=== PATIENT | male | born 1960 | race Caucasian/White ===

== ENCOUNTER 2016-12-20 08:44 | Emergency (ER) | payer MEDICAID, OTHER ==
[~2016-12-20] VITALS: Ht 172.7 cm; Wt 57.0 kg
[~2016-12-20 08:44] MED LIST: FINASTERIDE; HYDROCORTISONE CR; PREPARATION H; TAMSULOSIN
[2016-12-20 08:52] VITALS: Ht 172.7 cm; Wt 57.0 kg
[2016-12-20] MEDS ORDERED: morphine 4 MG/ML VIAL IV STA (09:19)
[2016-12-20] MEDS ORDERED: SOD CHLORIDE 0.9% 1,000 ML IV STA (09:19)
[2016-12-20] MEDS ORDERED: ONDANSETRON 4 MG INJ IV STA (09:19)
[2016-12-20 09:50] LABS: BASOPHILS % 0.5 % (0.0-2.0); EOSINOPHILS # 0.1 10^3/ul (0.0-0.5); EOSINOPHILS % 2.1 % (0.0-7.0); HEMATOCRIT 42.6 % (42.0-52.0); HEMOGLOBIN 14.6 g/dl (14.0-18.0); LYMPHOCYTES # 2.1 10^3/ul (0.8-2.9); MEAN CORPUSCULAR HEMOGLOBIN 29.4 pg (29.0-33.0); MEAN CORPUSCULAR HGB CONC 34.3 g/dl (32.0-37.0); MEAN CORPUSCULAR VOLUME 85.8 fl (82.0-101.0); MEAN PLATELET VOLUME 8.9 fl (7.4-10.4); MONOCYTE # 0.4 10^3/ul (0.3-0.9); MONOCYTES % 9.9 % (0.0-11.0); NEUTROPHIL # 1.8 10^3/ul (1.6-7.5); NEUTROPHILS % 40.5 % (39.0-77.0); PLATELET COUNT 173 10^3/UL (140-440); RED BLOOD COUNT 4.97 10^6/ul (4.70-6.10); UNCORRECTED WBC 4.5 10^3/ul (4.8-10.8); WHITE BLOOD COUNT 4.5 10^3/ul (4.8-10.8)
[2016-12-20 09:59] LABS: CONDITION 1
[2016-12-20 10:00] LABS: INR 1.14; PROTIME 14.6 Sec (12.2-14.2); PT RATIO 1.1
[2016-12-20 10:01] LABS: ALBUMIN 3.9 g/dl (3.3-4.9); CHLORIDE 101 mmol/L (97-110); POTASSIUM 4.5 mmol/L (3.5-5.1); SODIUM 140 mmol/L (135-144)
[2016-12-20 10:02] LABS: PARTIAL THROMBOPLASTIN TIME 25.6 Sec (25.0-35.0)
[2016-12-20 10:03] LABS: CREATININE 0.68 mg/dl (0.61-1.24)
[2016-12-20 10:04] LABS: ALANINE AMINOTRANSFERASE 52 IU/L (13-69); ALKALINE PHOSPHATASE 88 IU/L (42-121); ANION GAP 18 (8-16); ASPARTATE AMINO TRANSFERASE 35 IU/L (15-46); BILIRUBIN,INDIRECT 0.4 mg/dl (0-1.1); BILIRUBIN,TOTAL 0.4 mg/dl (0.2-1.3); BLOOD UREA NITROGEN 11 mg/dl (7-20); CALCIUM 9.4 mg/dl (8.4-10.2); CARBON DIOXIDE 26 mmol/L (21-31); GLUCOSE 95 mg/dl (70-220); TOTAL PROTEIN 6.5 g/dl (6.1-8.1)
[2016-12-20 10:11] LABS: AMYLASE 100 U/L (11-123)
[2016-12-20 10:17] LABS: TROPONIN-I < 0.012 ng/ml (0.00-0.12)
[2016-12-20] MEDS ORDERED: SOD CHLORIDE 0.9% 100 ML ONE (10:46)
[2016-12-20] MEDS ORDERED: IOHEXOL 300MG/ML 150 ML BTL ONE (10:46)
--- NOTE | 2016-12-20 11:10 | ERD ---
ER Documentation Chief Complaint Date/Time DATE: 12/20/16 TIME: 11:02 Chief Complaint left lower quadrant pain,hx of divertiulitis HPI This is a 56-year-old Hungarian-speaking male with a known history of diverticulitis. The patient had been seen and evaluated at [facility] December 01, 2016 and placed on ciprofloxacin and Flagyl for diverticulitis. He indicates that he has completed all the antibiotics but continues to have severe pain in the left lower quadrant. He states the pain is intermittent, localized to the left lower quadrant, with no alleviating or exacerbating factors. He also indicates he has had a nonproductive cough but denies any shortness of breath at rest or exertion. He has had no fevers no shaking or chills. He denies any hemoptysis hematemesis or melanotic stools. He denies any swelling of his lower extremities. He denies any recent remote blunt or penetrating abdominal wall trauma. ROS All systems reviewed and are negative except as per history of present illness. Medications Home Meds Discontinued Reported Medications [Hydrocortisone Cr] No Conflict Check 09/10/15 [Preparation H Cream] No Conflict Check 09/10/15 [Tamsulisin] No Conflict Check 09/10/15 [Finasteride] No Conflict Check 09/10/15 Allergies Allergies: Coded Allergies: No Known Allergy (Unverified , 12/20/16) PMhx/Soc History of Surgery: Yes (HAND SX) Anesthesia Reaction: No Hx Neurological Disorder: No Hx Respiratory Disorders: No Hx Cardiac Disorders: No Hx Psychiatric Problems: No Hx Miscellaneous Medical Probl: No (HEMRRHOIDS, DIVERTICULITIS) Hx Alcohol Use: No Hx Substance Use: No Hx Tobacco Use: No Smoking Status: Former smoker Physical Exam Vitals Vital Signs Date Time Temp Pulse Resp B/P Pulse Ox O2 Delivery O2 Flow Rate FiO2 12/20/16 08:52 98.6 88 18 142/76 98 Physical Exam Constitutional:Well-developed. Well-nourished. HEENT:Normocephalic. Atraumatic.Pupils were equal round reactive to light. Moist mucous membranes.No tonsillar exudates. Neck: No nuchal rigidity. No lymphadenopathy. No posterior cervical spine tenderness or step-offs. Respiratory: Not using accessory muscles of respiration.Lungs were clear to auscultation bilaterally. No rhonchi. No rales. No wheezing. Cardiovascular: Regular rate regular rhythm.No murmurs. No rubs were appreciated.S1, S2 normal. Distal pulses are palpable 2+ bilaterally. GI: Abdomen was soft. Left lower quadrant tenderness. Non Distended. No pulsatile abdominal masses or bruits. No rebound. No guarding. Bowel sounds were present and normal. Muscle skeletal: Full range of motion of both the upper and lower extremities bilaterally.Normal muscle tone.No assymetrical calf tenderness or swelling. Skin: No petechia, no purpura. No lesions on the palms or the soles of the feet. No maculopapular rash. NEURO: Patient was alert, awake, orientated x3.No facial droop. Gait observed and normal with no ataxia.Speech had regular rate and rhythm. No focal neurological deficits. Result Diagram: 12/20/1635 12/20/1635 Results 24 hrs Laboratory Tests Test 12/20/16 09:35 Activated Partial Thromboplast Time 25.6Sec Alanine Aminotransferase (ALT/SGPT) 52IU/L Albumin 3.9g/dl Albumin/Globulin Ratio 1.50 Alkaline Phosphatase 88IU/L Amylase Level 100U/L Anion Gap 18 Aspartate Amino Transf (AST/SGOT) 35IU/L Basophils # 0.010^3/ul Basophils % 0.5% Blood Urea Nitrogen 11mg/dl Calcium Level 9.4mg/dl Carbon Dioxide Level 26mmol/L Chloride Level 101mmol/L Creatinine 0.68mg/dl Direct Bilirubin 0.00mg/dl Eosinophils # 0.110^3/ul Eosinophils % 2.1% Globulin 2.60g/dl Glucose Level 95mg/dl Hematocrit 42.6% Hemoglobin 14.6g/dl INR International Normalized Ratio 1.14 Indirect Bilirubin 0.4mg/dl Lipase 67U/L Lymphocytes # 2.110^3/ul Lymphocytes % 47.0% Mean Corpuscular Hemoglobin 29.4pg Mean Corpuscular Hemoglobin Concent 34.3g/dl Mean Corpuscular Volume 85.8fl Mean Platelet Volume 8.9fl Monocytes # 0.410^3/ul Monocytes % 9.9% Neutrophils # 1.810^3/ul Neutrophils % 40.5% Nucleated Red Blood Cells # 0.010^3/ul Nucleated Red Blood Cells % 0.0/100WBC Platelet Count 06608^3/UL Potassium Level 4.5mmol/L Prothrombin Time 14.6Sec Prothrombin Time Ratio 1.1 Red Blood Count 4.9710^6/ul Red Cell Distribution Width 14.0% Sodium Level 140mmol/L Total Bilirubin 0.4mg/dl Total Protein 6.5g/dl Troponin I < 0.012ng/ml White Blood Count 4.510^3/ul Current Medications Medications (Trade) Dose Ordered Sig/Guerrero Route PRN Reason Start Time Stop Time Status Last Admin Dose Admin Sodium Chloride (NS) 1,000 ml @ 1,000 mls/hr Q1H STAT IV 12/20/16 09:19 12/20/16 10:18 DC 12/20/16 09:34 Morphine Sulfate (morphine) 4 mg ONCE STAT IV 12/20/16 09:19 12/20/16 09:20 DC 12/20/16 09:34 Ondansetron HCl (Zofran Inj) 4 mg ONCE STAT IV 12/20/16 09:19 12/20/16 09:20 DC 12/20/16 09:34 IV Flush 10 ml 10 ml STK-MED ONCE .ROUTE 12/20/16 10:46 12/20/16 10:47 DC Sodium Chloride (NS) 100 ml @ ud STK-MED ONCE .ROUTE 12/20/16 10:46 12/20/16 10:47 DC Iohexol (Omnipaque 300mg/ ml) 150 ml STK-MED ONCE .ROUTE 12/20/16 10:46 12/20/16 10:47 DC Procedures/MDM This patient presented to the emergency department with abdominal pain and was seen and evaluated by myself. My differential diagnosis included but was not limited to abdominal aortic aneurysm, appendicitis, pancreatitis, perforated peptic ulcer, perforated viscus, Boerhaaves syndrome or visceral pain such as diverticulitis, DKA, esophagitis, hepatitis or bowel obstruction. The patient was placed on a pot sander, continuous pulse oximetry, and IV access was established by nursing staff. The patient was given intravenous morphine and Zofran for analgesic control. 12 Lead EKG tracing ordered and reviewed by myself showed: Sinus bradycardia 58 bpm and no arrhythmia. AR interval normal. QRS duration normal. No ST segment elevation No ST segment depression. No changes consistent with acute ischemia. Given the severity of the patient's symptoms with completion of antibiotics and continued pain with a known history of diverticulitis I did feel is necessary to obtain a CT scan of the abdomen to rule out complication such as perforation. The CT scan was ordered and reviewed by myself and indicated the following: Departure Diagnosis: Primary Impression: Diverticulosis Condition: Fair FREEDOM KING Dec 20, 2016 11:10
--- NOTE | 2016-12-20 11:15 | RADRPT ---
PROCEDURE: XR Chest. CLINICAL INDICATION: Chest pain, cough. TECHNIQUE: Single frontal view of the chest was obtained. COMPARISON: None. FINDINGS: Cardiomediastinal silhouette appears normal Pulmonary vasculature appears normal. Lung terrell appear clear. Costophrenic angles are well defined. The osseous elements appear intact. IMPRESSION: 1. No evidence for active cardiopulmonary disease. RPTAT: AACC Kyle Rowland Physician Date Time Electronically viewed and signed by Kyle Rowland Physician on 12/20/2016 11:15 /
--- NOTE | 2016-12-20 11:17 | RADRPT ---
PROCEDURE: CT Abdomen and Pelvis with contrast. CLINICAL INDICATION: Left lower quadrant pain TECHNIQUE: CT of the abdomen and pelvis was performed on a multi-detector scanner following the un complicated IV administration of 100 cc of Omnipaque 300. Coronal and sagittal images were reformat bertha from the axial data set. One or more of the following dose reduction techniques were used: auto mated exposure control, adjustment of the mA and/or kV according to patient size, use of iterative reconstruction technique. CTDI = 20.75 mGy. DLP = 1266.96 mGy-cm. COMPARISON: None. FINDINGS: CT abdomen: The lung bases are clear. The heart size is normal, without pericardial effusion. Liver, gallbladd er, biliary tree, pancreas, spleen, adrenal glands and kidneys are unremarkable. No urolithiasis or obstructive uropathy is identified. The stomach is grossly unremarkable. There is no abdominal aortic aneurysm or dissection. There is no retroperitoneal lymphadenopathy. The kay hepatis region is clear. CT pelvis: No bowel obstruction, free intraperitoneal air or abscess is identified. Sigmoid diverticulosis is noted, without diverticulitis. The appendix is well visualized and normal. There is no colitis. U rinary bladder is grossly unremarkable. No pelvic mass, free fluid or lymphadenopathy is identified . Small fat-containing left inguinal hernia is noted, without incarceration. The surrounding osseous structures are unremarkable. No osteolytic or osteoblastic lesion is detect ed. IMPRESSION: 1. Colonic diverticulosis is noted, without diverticulitis. 2. Small fat-containing left inguinal hernia is seen, without incarceration. 3. No mass, lymphadenopathy, or focal acute inflammatory process is identified. RPTAT: EE .Marlon Thomas MD, Date Time Electronically viewed and signed by .Marlon Thomas MD, MD on 12/20/2016 11:17 .R/
[2016-12-20] MEDS ORDERED: KETOROLAC 30 MG INJ IV STA (12:40)
[2016-12-20] MEDS ORDERED: ACET1TAB40 PO (12:42)
[2016-12-20 13:19] VITALS: BP 119/68; PULSE 74; RESP 18
== END 2016-12-20 13:19 | disposition home or self-care (01) ==
LOC: E/R 08:44
DX: K57.90 Diverticulosis of intestine, part unspecified, without perforation or abscess without bleeding (principal); R40.2252 Coma scale, best verbal response, oriented, at arrival to emergency department; R40.2362 Coma scale, best motor response, obeys commands, at arrival to emergency department; R40.2142 Coma scale, eyes open, spontaneous, at arrival to emergency department; Z87.891 Personal history of nicotine dependence
CPT/HCPCS: 71010; 74177; 80053; 82150; 83690; 84484; 85025; 85610; 85730; 93005; 96374; 96375; J1885; J2270; J2405; J7030; Q9967; Z7502; Z7610

== ENCOUNTER 2017-02-28 10:25 | Inpatient (IN) | payer OTHER ==
[~2017-02-28] VITALS: Ht 167.6 cm; Wt 85.3 kg
[~2017-02-28 10:25] MED LIST changes: +ACET1TAB40 PO; -FINASTERIDE; -HYDROCORTISONE CR; -PREPARATION H; -TAMSULOSIN
[2017-02-28] MEDS ORDERED: ASPIRIN 325 MG TAB PO STA (10:58)
--- NOTE | 2017-02-28 11:25 | ERA ---
ER Documentation Chief Complaint Date/Time DATE: 02/28/17 TIME: 11:19 Chief Complaint HAS CP SINCE YESTERDAY HPI This is a very pleasant 56-year-old Croatian-speaking male with past medical history of hemorrhoids presents to the emergency department complaining of chest pain that has been intermittent the past 24 hours. The patient states that the pain began as a sharp shooting pain with no alleviating or exacerbating factors. The pain became more persistent roughly 2 hours prior to arrival where he stated it turned into a pressure-like sensation and began to radiate to his left arm neck with no numbness or tingling of his upper or lower extremities. He did not take any analgesic medication prior to arrival. He denied any associated symptoms of nausea vomiting or diaphoresis. He has had no fevers or shaking or chills. He does not smoke tobacco and states he has no family history of coronary artery disease in his first-degree relatives. He denies any hemoptysis hematemesis or melanotic stools. He has no shortness of breath at rest or exertion. He denies any recent travel or prolonged immobilization and no recent sick contacts or hospitalizations ROS All systems reviewed and are negative except as per history of present illness. Medications Home Meds Discontinued Scripts Acetaminophen with Codeine (Acetaminophen-Cod #3 Tablet) 1 Each Tablet, 1 TAB PO Q6H Y for PAIN LEVEL 6-10, #20 TAB Prov:FREEDOM KING 12/20/16 Allergies Allergies: Coded Allergies: No Known Allergy (Unverified , 02/28/17) PMhx/Soc History of Surgery: Yes (HAND SX) Anesthesia Reaction: No Hx Neurological Disorder: No Hx Respiratory Disorders: No Hx Cardiac Disorders: No Hx Psychiatric Problems: No Hx Miscellaneous Medical Probl: No (HEMRRHOIDS, DIVERTICULITIS) Hx Alcohol Use: No Hx Substance Use: No Hx Tobacco Use: No Physical Exam Vitals Vital Signs Date Time Temp Pulse Resp B/P Pulse Ox O2 Delivery O2 Flow Rate FiO2 02/28/17 14:00 39 17 114/80 98 Room Air 02/28/17 12:30 48 16 115/75 98 Room Air 02/28/17 10:37 98.0 63 18 127/70 99 Physical Exam Constitutional:Well-developed. Well-nourished. HEENT:Normocephalic. Atraumatic.Pupils were equal round reactive to light. Moist mucous membranes.No tonsillar exudates. Neck: No nuchal rigidity. No lymphadenopathy. No posterior cervical spine tenderness or step-offs. Respiratory: Not using accessory muscles of respiration.Lungs were clear to auscultation bilaterally. No rhonchi. No rales. No wheezing. Cardiovascular: Regular rate regular rhythm.No murmurs. No rubs were appreciated.S1, S2 normal. Distal pulses are palpable 2+ bilaterally. No reproducible chest wall tenderness crepitus or ecchymosis GI: Abdomen was soft. Nontender. Non Distended. No pulsatile abdominal masses or bruits. No rebound. No guarding. Bowel sounds were present and normal. Muscle skeletal: Full range of motion of both the upper and lower extremities bilaterally.Normal muscle tone.No assymetrical calf tenderness or swelling. Skin: No petechia, no purpura. No lesions on the palms or the soles of the feet. No maculopapular rash. NEURO: Patient was alert, awake, orientated x3.No facial droop. Gait observed and normal with no ataxia.Speech had regular rate and rhythm. No focal neurological deficits. Result Diagram: 02/28/17 1135 02/28/17 1135 Results 24 hrs Laboratory Tests Test 02/28/17 11:35 02/28/17 12:05 White Blood Count 4.510^3/ul Red Blood Count 4.7310^6/ul Hemoglobin 13.9g/dl Hematocrit 41.1% Mean Corpuscular Volume 86.9fl Mean Corpuscular Hemoglobin 29.4pg Mean Corpuscular Hemoglobin Concent 33.8g/dl Red Cell Distribution Width 13.2% Platelet Count 42636^3/UL Mean Platelet Volume 10.4fl Neutrophils % 47.2% Lymphocytes % 37.5% Monocytes % 9.7% Eosinophils % 4.5% Basophils % 0.7% Nucleated Red Blood Cells % 0.0/100WBC Neutrophils # 2.110^3/ul Lymphocytes # 1.710^3/ul Monocytes # 0.410^3/ul Eosinophils # 0.210^3/ul Basophils # 0.010^3/ul Nucleated Red Blood Cells # 0.010^3/ul Prothrombin Time 13.6Sec Prothrombin Time Ratio 1.1 INR International Normalized Ratio 1.04 Activated Partial Thromboplast Time 28.9Sec Sodium Level 135mmol/L Potassium Level 3.8mmol/L Chloride Level 104mmol/L Carbon Dioxide Level 24mmol/L Anion Gap 11 Blood Urea Nitrogen 10mg/dl Creatinine 0.65mg/dl Glucose Level 110mg/dl Hemoglobin A1c 5.6% Calcium Level 8.6mg/dl Total Bilirubin 0.3mg/dl Direct Bilirubin 0.00mg/dl Indirect Bilirubin 0.3mg/dl Aspartate Amino Transf (AST/SGOT) 29IU/L Alanine Aminotransferase (ALT/SGPT) 41IU/L Alkaline Phosphatase 113IU/L Creatine Kinase 140IU/L Creatine Kinase Index 0.6 Creatinine Kinase MB (Mass) 0.90ng/ml Troponin I < 0.012ng/ml B-Type Natriuretic Peptide 37PG/ML Total Protein 6.8g/dl Albumin 3.9g/dl Globulin 2.90g/dl Albumin/Globulin Ratio 1.34 Urine Color LT. YELLOW Urine Clarity CLEAR Urine pH 7.0 Urine Specific [place] <=1.005 Urine Ketones NEGATIVE Urine Nitrite NEGATIVE Urine Bilirubin NEGATIVE Urine Urobilinogen 0.2 E.U./dL Urine Leukocyte Esterase NEGATIVE Urine Hemoglobin NEGATIVE Urine Glucose NEGATIVE% Urine Total Protein NEGATIVE Current Medications Medications (Trade) Dose Ordered Sig/Guerrero Route PRN Reason Start Time Stop Time Status Last Admin Dose Admin Aspirin (Aspirin) 325 mg ONCE STAT PO 02/28/17 10:58 02/28/17 11:00 DC 02/28/17 11:37 Nitroglycerin (Nitroglycerin (Sl Tab) 0.4 Mg) 1 tab Q5M UP TO 3 DOSES PRN SL CHEST PAIN 02/28/17 12:30 Morphine Sulfate (morphine) 2 mg ONCE STAT IV 02/28/17 12:49 02/28/17 12:50 DC 02/28/17 13:45 Ondansetron HCl 4 mg 4 mg ONCE STAT IV 02/28/17 12:49 02/28/17 12:50 DC 02/28/17 13:45 Sodium Chloride (NS) 1,000 ml @ 1,000 mls/hr Q1H STAT IV 02/28/17 13:55 02/28/17 14:54 DC 02/28/17 13:59 Ondansetron HCl (Zofran Inj) 4 mg ER BRIDGE PRN IV NAUSEA AND/OR VOMITING 02/28/17 14:30 03/01/17 14:29 Acetaminophen (Tylenol Tab) 650 mg ER BRIDGE PRN PO MILD PAIN/FEVER 02/28/17 14:30 03/01/17 14:29 IV Flush 10 ml 10 ml STK-MED ONCE .ROUTE 02/28/17 15:39 02/28/17 15:40 DC Sodium Chloride 100 ml @ ud STK-MED ONCE .ROUTE 02/28/17 15:39 02/28/17 15:40 DC Iohexol (Omnipaque) 100 ml @ ud STK-MED ONCE .ROUTE 02/28/17 15:39 02/28/17 15:40 DC Iohexol (Omnipaque 350mg/ ml) 50 ml STK-MED ONCE .ROUTE 02/28/17 15:39 02/28/17 15:40 DC Procedures/MDM The patient presented to the emergency department with chest pain. My clinical evaluation and workup was to distinguish minor causes of chest pain from acute life threatening conditions such as myocardial infarction, pulmonary embolism, aortic dissection, esophageal rupture, cardiac tamponade. The patient was placed on a engineering operations leader and continuous pulse oximetry. IV access established by nursing staff. The patient received 325 mg of aspirin p.o. Sublingual nitroglycerin was also given to the patient. There is no improvement of the patient's chest discomfort which he stated was 6 out of 10 in intensity. Therefore the patient received intravenous morphine and Zofran. 12 Lead EKG tracing ordered and reviewed by myself showed at 10:42am: Normal sinus rhythm of 65 bpm and no arrhythmia. DC interval normal. QRS duration normal. No ST segment elevation No ST segment depression. No changes consistent with acute ischemia. Repeat EKG performed by myself at 11:05 AM. 12 Lead EKG tracing ordered and reviewed by myself showed: Sinus bradycardia 56 bpm and no arrhythmia. DC interval normal. QRS duration normal. No ST segment elevation No ST segment depression. No changes consistent with acute ischemia. The patient was now complaining of chest pain that was radiating to the back and mild neck pain with no meningeal signs. Therefore obtained a CT scan of the patient's neck and chest and there is no evidence of aortic dissection, mass or abscess. The patient had no leukocytosis. The patient will be admitted for serial 12-lead EKG tracings and cardiac set of enzymes under the care of Dr. Ramos. Departure Diagnosis: Primary Impression: Chest pain Qualified Code: R07.9 - Chest pain, unspecified type Condition: Serious FREEDOM KING Feb 28, 2017 11:25
[2017-02-28 11:38] LABS: ADD SCAN DIFF NO
[2017-02-28 11:42] LABS: BASOPHILS % 0.7 % (0.0-2.0); EOSINOPHILS # 0.2 10^3/ul (0.0-0.5); EOSINOPHILS % 4.5 % (0.0-7.0); HEMATOCRIT 41.1 % (42.0-52.0); HEMOGLOBIN 13.9 g/dl (14.0-18.0); LYMPHOCYTES # 1.7 10^3/ul (0.8-2.9); LYMPHOCYTES % 37.5 % (15.0-51.0); MEAN CORPUSCULAR HEMOGLOBIN 29.4 pg (29.0-33.0); MEAN CORPUSCULAR HGB CONC 33.8 g/dl (32.0-37.0); MEAN CORPUSCULAR VOLUME 86.9 fl (82.0-101.0); MEAN PLATELET VOLUME 10.4 fl (7.4-10.4); MONOCYTE # 0.4 10^3/ul (0.3-0.9); MONOCYTES % 9.7 % (0.0-11.0); NEUTROPHIL # 2.1 10^3/ul (1.6-7.5); NEUTROPHILS % 47.2 % (39.0-77.0); PLATELET COUNT 163 10^3/UL (140-415); RED BLOOD COUNT 4.73 10^6/ul (4.70-6.10); RED CELL DISTRIBUTION WIDTH 13.2 % (11.5-14.5); WHITE BLOOD COUNT 4.5 10^3/ul (4.8-10.8)
[2017-02-28 11:51] LABS: INR 1.04; PROTIME 13.6 Sec (12.2-14.2); PT RATIO 1.1
[2017-02-28 11:52] LABS: PARTIAL THROMBOPLASTIN TIME 28.9 Sec (25.0-35.0)
--- NOTE | 2017-02-28 11:53 | RADRPT ---
PROCEDURE: XR Chest 1 View. CLINICAL INDICATION: Chest pain TECHNIQUE: AP view of the chest was obtained. COMPARISON: None. FINDINGS: The cardiomediastinal silhouette is within normal limits. No consolidations are identified. No pne umothorax is seen. Osseous structures are intact. IMPRESSION: No visualized active disease. RPTAT: AA .Bobby Salazar MD, MD Date Time Electronically viewed and signed by .Bobby Salazar MD, on 02/28/2017 11:53 .P/
[2017-02-28 11:56] LABS: ALANINE AMINOTRANSFERASE 41 IU/L (13-69); ALBUMIN 3.9 g/dl (3.3-4.9); ALBUMIN/GLOBULIN RATIO 1.34; ALKALINE PHOSPHATASE 113 IU/L (42-121); ANION GAP 11 (8-16); ASPARTATE AMINO TRANSFERASE 29 IU/L (15-46); BILIRUBIN,INDIRECT 0.3 mg/dl (0-1.1); BILIRUBIN,TOTAL 0.3 mg/dl (0.2-1.3); BLOOD UREA NITROGEN 10 mg/dl (7-20); CALCIUM 8.6 mg/dl (8.4-10.2); CARBON DIOXIDE 24 mmol/L (21-31); CHLORIDE 104 mmol/L (97-110); CREATINE KINASE 140 IU/L (23-200); CREATININE 0.65 mg/dl (0.61-1.24); GLUCOSE 110 mg/dl (70-220); POTASSIUM 3.8 mmol/L (3.5-5.1); SODIUM 135 mmol/L (135-144); TOTAL PROTEIN 6.8 g/dl (6.1-8.1)
[2017-02-28 12:07] LABS: B-TYPE NATRIURETIC PEPTIDE 37 PG/ML (0-125)
[2017-02-28 12:18] LABS: TROPONIN-I < 0.012 ng/ml (0.00-0.12)
[2017-02-28 12:29] LABS: ADD UMIC NO; URINE BILIRUBIN (Dip) NEGATIVE (NEGATIVE); URINE BLOOD (Dip) NEGATIVE (NEGATIVE); URINE COLOR LT. YELLOW (YELLOW); URINE GLUCOSE (Dip) NEGATIVE (NEGATIVE); URINE KETONES (Dip) NEGATIVE (NEGATIVE); URINE LEUKOCYTE ESTERASE (Dip) NEGATIVE (NEGATIVE); URINE NITRITE (Dip) NEGATIVE (NEGATIVE); URINE TOTAL PROTEIN (Dip) NEGATIVE (NEGATIVE); URINE UROBILINOGEN (Dip) 0.2 E.U./dL (0.1-1.0)
[2017-02-28] MEDS ORDERED: NITROGLYCERIN (SL) 0.4 MG TAB SL PRN (12:30)
[2017-02-28] MEDS ORDERED: ONDANSETRON 4 MG INJ IV STA (12:49)
[2017-02-28] MEDS ORDERED: morphine 2 MG INJ IV STA (12:49)
[2017-02-28] MEDS ORDERED: SOD CHLORIDE 0.9% 1,000 ML IV STA (13:55)
[2017-02-28] MEDS ORDERED: ONDANSETRON 4 MG INJ IV PRN (14:30)
[2017-02-28] MEDS ORDERED: ACETAMINOPHEN 325 MG TAB PO PRN (14:30)
[2017-02-28] MEDS ORDERED: SOD CHLORIDE 0.9% 100 ML ONE (15:39)
[2017-02-28] MEDS ORDERED: IOHEXOL 350MG/ML 50 ML BTL ONE (15:39)
[2017-02-28] MEDS ORDERED: IOHEXOL 100 ML ONE (15:39)
--- NOTE | 2017-02-28 16:16 | RADRPT ---
PROCEDURE: CT cervical spine without contrast CLINICAL INDICATION: Trauma. Neck pain. TECHNIQUE: CT scan of the cervical spine was performed [facility] No IV contrast was administered. Coronal and sagittal reformatted images were obtained from th e axial source images. Images were reviewed on a high-resolution PACS workstation. One or more the f ollowing does reduction techniques were utilized: Automated exposure control, adjustment of the mA/ or kV according to patient's size, or use of iterative reconstruction technique. Exam CTDI = 18.85 m Gy and the DLP = 407.54 mGy-cm. COMPARISON: None available. FINDINGS: There is reversal of normal cervical lordosis centered at C3-C4. Alignment remains intact. No acut e fracture or dislocation is seen. The vertebral body heights are preserved. No mass, hematoma, or other soft tissue abnormality is seen. There are multilevel mild degenerative changes of the cervical spine, manifested by osteophytosis an d disc height narrowing, most prominent at C4-C5 and C5-C6. Posterior disk osteophyte complexes cont ribute to mild spinal canal narrowing at C3-C4 through C5-C6. IMPRESSION: 1. Reversal of normal cervical lordosis centered at C3-C4. 2. No acute fracture or traumatic subluxation. 3. Multilevel mild degenerative changes of the cervical spine, most prominent at C4-C5 and C5-C6. 4. Posterior disk osteophyte complexes contribute to mild spinal canal narrowing at C3-C4 through C 5-C6. 5. No significant cervical foraminal stenosis. RPTAT: HH .Zev Taylor MD, MD Date Time Electronically viewed and signed by .Zev Taylor MD, MD on 02/28/2017 16:15 .N/
--- NOTE | 2017-02-28 16:35 | RADRPT ---
PROCEDURE: CTA Chest CLINICAL INDICATION: Chest pain and shortness of breath. TECHNIQUE: CT scan of the chest and CT thoracic angiogram was performed on a multidetector high-r esolution CT scanner. High-resolution thin slice coronal and sagittal imaging was obtained from the axial source images. 3-D volumetric rendered post processing was performed as well. The patient w as examined following the uncomplicated intravenous administration of 125 cc of Omnipaque-350. The i mages were reviewed on a PACS workstation. The total exam CTDI equals 53.52, and 15.61 and the total exam DLP equals 680.75 mGy-cm. One or more of the following dose reduction techniques were used: Automated exposure control. Adjustment of the mA and/or kV according to patient size. Use of iterative reconstruction technique. COMPARISON: No prior studies are available for comparison. FINDINGS: Vascular: The aortic root measures up to 4 cm, upper limits of normal range. There is no aortic dissection. N o significant atherosclerotic plaque is noted. Pulmonary arteries are patent with no evidence of ma laura pulmonary emboli. Upper abdominal aorta is normal in caliber. Celiac artery, SMA, and bilatera l single renal arteries are patent with no significant ostial stenosis. CT chest: The lungs are clear. No focal opacification, effusion, pneumothorax, edema, or nodules are seen. T he central tracheobronchial tree is clear. The mediastinum is unremarkable without evidence for mass or lymphadenopathy. The vascular structur es of the mediastinum are normal in course and caliber. The heart size is normal without pericardia l thickening or effusion. The axillary, subpectoral, and supraclavicular regions are unremarkable. Imaging obtained through the upper abdomen is equally unremarkable. The adrenal glands are symmetri trent normal. The surrounding chest wall is unremarkable. The osseous structures are unremarkable IMPRESSION: Vascular: 1. No aortic dissection. No major pulmonary emboli. 2. Aortic root measures up to 4 cm, upper limits of normal range. 3. Abdominal aorta is normal in caliber with no dissection. Chest: 1. No mass, lymphadenopathy or acute infiltrates. RPTAT: BB .Colt Barber MD, MD Date Time Electronically viewed and signed by .Colt Barber MD, on 02/28/2017 16:35 .O/
[2017-02-28 17:47] LABS: CREATINE KINASE 105 IU/L (23-200)
[2017-02-28 17:59] LABS: CK-MB 0.92 ng/ml (0.0-2.4); TROPONIN-I < 0.012 ng/ml (0.00-0.12)
[2017-02-28 20:00] VITALS: BP 130/73; RESP 20
[2017-02-28 20:14] VITALS: PULSE 46
[2017-02-28] MEDS ORDERED: METHYLPREDNISOLONE (MEDROL) DOSE PACK PO SCH (20:30)
[2017-02-28] MEDS: METHYLPREDNISOLONE 4 MG TAB PO SCH ×2 (21:00→22:46)
[2017-02-28 22:24] VITALS: Ht 167.6 cm; Wt 85.3 kg
[2017-02-28] MEDS: ACETAMINOPHEN 500 MG TAB PO PRN (22:47)
[2017-03-01] VITALS (8 sets, daily range): BP systolic 98–107; BP diastolic 52–67; PULSE 49–75; RESP 15–18
[2017-03-01 00:29] LABS: CREATINE KINASE 104 IU/L (23-200)
[2017-03-01 00:44] LABS: CK-MB 0.61 ng/ml (0.0-2.4); TROPONIN-I < 0.012 ng/ml (0.00-0.12)
[2017-03-01] MEDS: METHYLPREDNISOLONE 4 MG TAB PO SCH ×3 (07:30→17:26)
[2017-03-01] MEDS: ASPIRIN (EC) 325 MG TAB PO SCH (09:01)
[2017-03-01] MEDS: ENOXAPARIN 40 MG/0.4 ML SYG SC SCH (09:07)
[2017-03-01] MEDS: ACETAMINOPHEN 500 MG TAB PO PRN (09:07)
[2017-03-01] MEDS: KETOROLAC 15 MG INJ IV PRN ×3 (10:25→22:35)
[2017-03-01 11:58] LABS: CHOLESTEROL 143 mg/dl (100-200)
[2017-03-01 11:59] LABS: CHOL/HDL RATIO 2.6 RATIO; HDL CHOLESTEROL 53 mg/dl (28-71); TRIGLYCERIDES 35 mg/dl (0-149)
[2017-03-01 12:24] LABS: TROPONIN-I < 0.012 ng/ml (0.00-0.12)
[2017-03-01] MEDS ORDERED: morphine 2 MG INJ IV PRN (14:00)
--- NOTE | 2017-03-01 15:48 | PN ---
Date/Time of Note Date/Time of Note DATE: 03/01/17 TIME: 15:41 Assessment/Plan VTE Prophylaxis VTE Prophylaxis Intervention: other Lines/Catheters IV C[facility] Type ([facility] Peripheral IV Urinary Cath still in place: No Assessment/Plan Assessment/Plan 1. Cervical radiculopathy with atypical chest pain. -Cardiology -Troponins 3 negative - aspirin - Medrol Dosepak - Toradol on p.r.n. basis - echocardiogram - TSH- wnl, lipid panel- wnl 2. Sinus bradycardia. -Telemetry monitoring 3. Left shoulder pain -We will get x-ray and left shoulder/follow-up Further recommendations will depend upon the patient's hospital course. Discussed with Dr. Ramos, staff Subjective 24 Hr Interval Summary Eyes: no complaints ENT: no complaints Respiratory: no complaints Cardiovascular: no complaints Genitourinary: other (Incontinent x 4 years) Musculoskeletal: bone/joint pain (Left shoulder pain) Exam/Review of Systems Vital Signs Vitals Vital Signs Date Time Temp Pulse Resp B/P Pulse Ox O2 Delivery O2 Flow Rate FiO2 03/01/17 12:06 58 03/01/17 04:00 97.6 15 98/52 98 02/28/17 16:00 Room Air Intake and Output 02/28/17 02/28/17 03/01/17 15:00 23:00 07:00 Intake Total 240 ml Output Total 300 ml Balance -60 ml Exam Constitutional: alert, well developed Psych: nl mood/affect Eyes: EOMI ENMT: nl external ears & nose Neck: non-tender Respiratory: clear to auscultation Cardiovascular: nl pulses Gastrointestinal: non-tender, soft Musculoskeletal: range of motion (Left neck tenderness, left shoulder with decreased range of motion) Extremities: normal pulses Neurological: nl mental status, nl speech Skin: nl turgor Lymph: nontender Results Result Diagram: 02/28/17 1135 02/28/17 1135 Results 24 hrs Laboratory Tests Test 02/28/17 16:55 02/28/17 22:45 03/01/17 11:20 Creatine Kinase 105 104 Creatine Kinase Index 0.9 0.6 Creatinine Kinase MB (Mass) 0.92 0.61 Troponin I < 0.012 < 0.012 < 0.012 Triglycerides Level 35 Cholesterol Level 143 LDL Cholesterol, Calculated 83 HDL Cholesterol 53 Cholesterol/HDL Ratio 2.6 Thyroid Stimulating Hormone (TSH) 1.190 Medications Medications Current Medications Aspirin (Ecotrin) 325 mg DAILY PO Last administered on 03/01/17 09:01; Admin Dose 325 MG; Start 03/01/17 at 09:00 Ketorolac Tromethamine (Toradol) 15 mg Q6H PRN IV PAIN Last administered on 10:25; Admin Dose 15 MG; Start 02/28/17 at 20:30; Stop 03/03/17 at 20:29 Acetaminophen (Tylenol Tab) 500 mg Q4H PRN PO PAIN AND OR ELEVATED TEMP Last administered on 03/01/17 09:07; Admin Dose 500 MG; Start 02/28/17 at 20:30 Enoxaparin Sodium (Lovenox) 40 mg DAILY SC Last administered on 03/01/17 09:07 ; Admin Dose 40 MG; Start 03/01/17 at 09:00 Methylprednisolone (Medrol) 8 mg HS PO ; Start 03/01/17 at 21:00; Stop 03/01/17 at 21:01 Methylprednisolone (Medrol) 4 mg HS PO ; Start 03/02/17 at 21:00; Stop 03/04/17 at 21:01 Morphine Sulfate (morphine) 2 mg Q4H PRN IV PAIN LEVEL 4-6 Last administered on 03/01/17 14:14; Admin Dose 2 MG; Start 03/01/17 at 14:00 CAMELIA JUARES Mar 01, 2017 15:47
--- NOTE | 2017-03-01 18:57 | CONS ---
DATE OF ADMISSION: 02/28/2017 DATE OF CONSULTATION: 03/01/2017 REASON FOR CONSULTATION: Chest pain, assess for acute coronary syndrome. REQUESTING PHYSICIAN: Luz Marina Ramos MD. HISTORY OF PRESENT ILLNESS: Mr. Bean is a 56-year-old male with history of rectal bleeding due to internal hemorrhoids and diverticulosis who presented with neck pain radiating down his chest in to his upper extremity. It was described as a pressure-like sensation with associated palpitations and stabbing component occurring at rest. The patient denied associated dizziness, syncope and palp itations. Upon arrival in the emergency department, temperature 98, blood pressure 127/70, pulse 60 , respirations 18, saturating 99%. The patient's labs showed white count 4.5, hemoglobin 13.9, plat elet count of 163, a sodium 135, potassium 3.8, creatinine 0.6, BUN 10, AST 29, ALT 41, troponin neg ative. BNP of 37. INR 1.0. UA negative. The patient underwent a chest x-ray revealing no active cardiopulmonary abnormalities. The patient underwent a CT and CTA revealing no aortic dissection. Aorta measures 4 cm. Abdominal aorta normal caliber and a cervical spine CT revealing normal cervic al lordosis at C3-C4 and multilevel, mild degenerative changes of the cervical spine, most prominent at C4-C5, C5-C6 posterior, disk osteophyte complex due to mild chronic narrowing at C3-C4, C5-C6. The patient's electrocardiogram revealed sinus bradycardia, rate 56, normal axis, normal intervals, and T-wave flattening in aVL. The patient was subsequently admitted to the floor and since admit to the floor has had negative troponins x3, ruling him out for acute myocardial infarction. PAST MEDICAL HISTORY: As above in HPI. MEDICATIONS CURRENTLY IN HOSPITAL: Solu-Medrol, morphine and Aspirin 325 mg daily, Lovenox 60 daily , Toradol, Tylenol and sublingual nitroglycerin. ALLERGIES: NO KNOWN DRUG ALLERGIES. SOCIAL HISTORY: No tobacco, ETOH or illicit drug use. FAMILY HISTORY: No history of sudden cardiac or early CAD. REVIEW OF SYSTEMS: As above in HPI. CONSTITUTIONAL: No fevers, chills. PULMONARY: No current shortness of breath. CARDIOVASCULAR: No current chest pain. GASTROINTESTINAL: No vomiting. GENITOURINARY: No hematuria. MUSCULOSKELETAL: Degenerative joint disease. PSYCHIATRIC: No documented psych history. NEUROLOGIC: No documented CVA. PHYSICAL EXAMINATION: VITAL SIGNS: Temperature 98, pulse most recently 74, blood pressure 107/67 with heart rates reporte dly from overnight as low as 39, although on review of the monitor these are not noted, possibly in the ER, but we will review. At this time, the patient continues to have chest pain. PAST MEDICAL HISTORY: As above in HPI. Temperature 98, blood pressure most recently 107/69, pulse 74, respiratory rate 18, sat 96%. GENERAL: The patient is alert, awake, in no acute distress. NECK: JVP approximately 9 cm of water. CHEST: Fair movement throughout. HEART: Regular rate and rhythm. Normal S1, S2, I/ systolic murmur, nondisplaced PMI. ABDOMEN: Positive bowel sounds, soft. EXTREMITIES: No pitting edema, 1+ pulses bilaterally, posterior tibial. LABORATORY DATA: As above in HPI, with most recent from today, LDL 83, HDL 56. Troponin negative x 3. IMAGING STUDIES: As above in HPI. No further imaging studies for my review at this time. ECG: As above in HPI. No further electrocardiograms for my review at this time. IMPRESSION: 1. Chest pain, assess for acute coronary syndrome with somewhat atypical symptomatology for cardiac etiology at this time. 2. Bradycardia with most recently reasonable heart rates, but by assessment of vital signs have bee n as low 39. We will review telemetry strips with [employer] tech which did not show me any rhyt hms quite that slow. 4. Hypotension, borderline. 5. Neck pain, possible cervical radiculopathy. RECOMMENDATIONS: 1. At this time, would maintain the patient on telemetry monitoring to follow rhythm and rate contr ol closely. 2. The patient is status post TSH within normal limits. At this time, would hold off on any chau agents or to follow the patient's rhythm for any recurrent significant bradycardia. 3. Continue the patient's aspirin for prophylaxis against cardiovascular events. 4. Check the patient's 2D echo to further assess the patient's ejection fraction, wall motion, rule out any major valve abnormalities. If found to have wall motion abnormalities, decreased heart fun ction and would consider Lexiscan stress test to assure the patient's chest pain is not due to cardi ac etiology. 5. Continue the patient's current steroids at this time and continue the patient's pain control. Thank you for allowing me to take part in the care of this patient and I will continue to follow jackelin y closely with you with further recommendations to be made as [facility] Dictated By: FOZIA VASQUEZ/SCAR Conf#: [id number] DID#: [id number] CC: LUZ MARINA RAMOS MD;*EndCC*
--- NOTE | 2017-03-01 19:08 | RADRPT ---
Echocardiogram Report Patient Name: PACO LYN Gender: Male Date: 1960 Study Date: 01-Mar-2017 Animal Stunner: [facility] Location: 5545 Ref. Physician: LUZ MARINA MCPHERSON Quality: Adequate Procedures: Transthoracic echocardiogram with complete 2D, M-Mode, and doppler examination. Indications: Chest Pain. 2D/M Mode Doppler Measurement Value Normal Ranges Measurement Value Normal Ranges LVIDd 2D 4.3 3.5 - 5.6 cm PRASANTH Vmax 3.4 cm2 LVIDs 2D 2.8 2.1 - 4.1 cm AV Peak Wayne 1.4 m/sec FS 2D 36.3 % AV Peak PG 8.0 mmHg LVPWd 2D 1.0 0.6 - 1.1 cm AI Peak PG 23.0 mmHg IVSd 2D 1.0 0.6 - 1.1 cm AI Peak Wayne 2.4 m/sec IVS/LVPW 2D 1.0 LVOT Peak Wayne 1.3 m/sec AoR Diam 2D 3.2 2.0 - 3.7 cm LVOT Peak PG 6.0 mmHg LA/Ao 2D 1 0 - 1 MV E Peak Wayne 0.9 m/sec EDV 2D 81.2 cm3 MV A Peak Wayne 0.9 m/sec ESV 2D 21.0 cm3 MV E/A 1.0 LA Dimen 2D 3.3 2.3 - 4.0 cm MV Decel Time 271 msec LVOT Diam 2.2 cm MV E/A 1.0 LVOT Area 3.8 cm2 TR Peak Wayne 1.9 m/sec TR Peak PG 14.0 mmHg RVSP 17.0 mmHg Findings Left Ventricle: Normal left ventricular systolic function. Normal left ventricular cavity size. Normal left ventricular wall thickness. Ejection fraction is visually estimated at 60 %. Tissue Doppler/Mitral Doppler indices are consistent with impaired relaxation (Stage I diastolic dysfunction). Right Ventricle: Normal right ventricular size. Normal right ventricular systolic function. Left Atrium: The left atrium is normal in size. Right Atrium: The right atrium is normal in size. Mitral Valve: Mitral valve leaflets appear mildly thickened. Mild mitral annular calcification. Mild mitral valve regurgitation. Aortic Valve: Aortic cusps appear mildly calcified. Mild aortic valve regurgitation. Tricuspid Valve: Normal appearance and function of the tricuspid valve with trace physiologic regurgitation. Normal right ventricular systolic pressure. Estimated peak PA systolic pressure 17 mmHg. Pulmonic Valve: Pulmonic valve not well visualized. Pericardium: Normal pericardium with no significant pericardial effusion. Aorta: Normal aortic root. IVC: Normal size and normal respiratory collapse consistent with normal right atrial pressure. Conclusions Normal left ventricular systolic function. Normal left ventricular cavity size. Normal left ventricular wall thickness. Ejection fraction is visually estimated at 60 %. Tissue Doppler/Mitral Doppler indices are consistent with impaired relaxation (Stage I diastolic dysfunction). Mitral valve leaflets appear mildly thickened. Mild mitral annular calcification. Mild mitral valve regurgitation. Aortic cusps appear mildly calcified. Mild aortic valve regurgitation. Normal appearance and function of the tricuspid valve with trace physiologic regurgitation. Normal right ventricular systolic pressure. Estimated peak PA systolic pressure 17 mmHg. Electronically Signed By: Sanjiv Rojas 01-Mar-2017 19:07:36 -0700 Patient Name: PACO LYN Study Date: 01-Mar-2017 [id number]
--- NOTE | 2017-03-01 20:12 | RADRPT ---
PROCEDURE: XR left shoulder. CLINICAL INDICATION: Pain, no trauma. TECHNIQUE: AP, Internal and external rotation views of the left shoulder were performed. COMPARISON: None. FINDINGS: There are degenerative changes of the left AC joint. The left glenohumeral joint is re l. The lungs and visible portions of the ribs are normal. IMPRESSION: Osteoarthritis of the left acromioclavicular joint. RPTAT:AAJJ Physician Brook Date Time Electronically viewed and signed by Torey Nunez Physician on 03/01/2017 20:11 /
[2017-03-01] MEDS ORDERED: METHYLPREDNISOLONE 4 MG TAB PO SCH (21:00)
[2017-03-02] VITALS (12 sets, daily range): BP systolic 90–132; BP diastolic 51–78; PULSE 50–64; RESP 15–18
[2017-03-02 07:51] LABS: ADD SCAN DIFF NO
[2017-03-02 07:56] LABS: BASOPHILS % 0.3 % (0.0-2.0); EOSINOPHILS % 0.4 % (0.0-7.0); HEMATOCRIT 42.4 % (42.0-52.0); HEMOGLOBIN 14.3 g/dl (14.0-18.0); LYMPHOCYTES # 1.5 10^3/ul (0.8-2.9); LYMPHOCYTES % 19.3 % (15.0-51.0); MEAN CORPUSCULAR HEMOGLOBIN 29.5 pg (29.0-33.0); MEAN CORPUSCULAR HGB CONC 33.7 g/dl (32.0-37.0); MEAN CORPUSCULAR VOLUME 87.6 fl (82.0-101.0); MONOCYTE # 0.5 10^3/ul (0.3-0.9); MONOCYTES % 6.9 % (0.0-11.0); NEUTROPHIL # 5.5 10^3/ul (1.6-7.5); NEUTROPHILS % 72.7 % (39.0-77.0); PLATELET COUNT 165 10^3/UL (140-415); RED BLOOD COUNT 4.84 10^6/ul (4.70-6.10); RED CELL DISTRIBUTION WIDTH 13.4 % (11.5-14.5); WHITE BLOOD COUNT 7.5 10^3/ul (4.8-10.8)
[2017-03-02 08:04] LABS: POTASSIUM 3.6 mmol/L (3.5-5.1)
[2017-03-02 08:07] LABS: CREATININE 0.73 mg/dl (0.61-1.24)
[2017-03-02 08:08] LABS: CALCIUM 8.9 mg/dl (8.4-10.2)
[2017-03-02] MEDS: ASPIRIN (EC) 325 MG TAB PO SCH (09:02)
[2017-03-02] MEDS: ENOXAPARIN 40 MG/0.4 ML SYG SC SCH (09:03)
[2017-03-02] MEDS: METHYLPREDNISOLONE 4 MG TAB PO SCH ×4 (09:06→21:09)
--- NOTE | 2017-03-02 09:31 | RADRPT ---
Vent Rate: 56 bpm RR Interval: 0 msec NV Interval: 150 msec QRS Duration: 84 msec QT Interval: 440 msec QTC Interval: 424 msec P-R-T [place]: 55 - 61 - 62 degrees Sinus bradycardia Otherwise normal ECG Electronically Signed By: Lee Jack [id number]
--- NOTE | 2017-03-02 09:33 | RADRPT ---
Vent Rate: 57 bpm RR Interval: 0 msec ID Interval: 140 msec QRS Duration: 86 msec QT Interval: 430 msec QTC Interval: 418 msec P-R-T [place]: 58 - 62 - 57 degrees Sinus bradycardia Otherwise normal ECG Electronically Signed By: Lee Jack [id number]
[2017-03-02] MEDS ORDERED: REGADENOSON 0.4 MG/5 ML SYG ONE (12:57)
--- NOTE | 2017-03-02 13:30 | CONS ---
Date/Time of Note Date/Time of Note DATE: 03/02/17 TIME: 13:25 Assessment/Plan Assessment/Plan Chief Complaint/Hosp Course IMPRESSION: 1. Chest pain, assess for acute coronary syndrome with somewhat atypical symptomatology for cardiac etiology at this time.-negative troponin x 3/NL EF by echo this admit. EF 55-60 2. Bradycardia with most recently reasonable heart rates, but by assessment of vital signs have been as low 39. We will review telemetry strips with tele technical planner which did not show me any rhythms quite that slow.-documented to 50 overnight 4. Hypotension, borderline.-stable to improved 5. Neck pain, possible cervical radiculopathy. Recc: -Tele -serial ecg's -Contiue asa -PRN nitro -Continue steroids and follow symptoms -Lexiscan stress test today Problems: Consultation Date/Type/Reason Admit Date/Time Feb 28, 2017 at 14:34 Initial Consult Date 03/01/2017 Type of Consultation: Cardiology Reason for Consultation chest pain Referring Provider: LUZ MARINA MCPHERSON MD Exam/Review of Systems Vital Signs Vitals Vital Signs Date Time Temp Pulse Resp B/P Pulse Ox O2 Delivery O2 Flow Rate FiO2 03/02/17 12:28 59 03/02/17 11:38 97.8 18 113/71 96 02/28/17 16:00 Room Air Intake and Output 03/01/17 03/01/17 03/02/17 14:59 22:59 06:59 Intake Total 1000 ml 450 ml Balance 1000 ml 450 ml Exam Review of Systems: CONSTITUTIONAL: No fevers, chills. PULMONARY: No sob CARDIOVASCULAR: Positive chest pain/palpitations GASTROINTESTINAL: No nausea/vomiting. GENITOURINARY: No hematuria/dysuria. MUSCULOSKELETAL: No myagias/arthalgias. PSYCHIATRIC: The patient denies depression. NEUROLOGIC: No weakness Constitutional: alert Psych: no complaints Head: normocephalic ENMT: mucosa pink and moist Neck: jvd (9 cm water), supple Respiratory: diminished breath sounds (at bases/B) Cardiovascular: regular rate and rhythm Gastrointestinal: non-tender, soft Musculoskeletal: muscle tone (normal) Extremities: edema (none) Neurological: other (No focal deficits) Results Result Diagram: 03/02/17 0635 03/02/17 0635 Results 24 hrs Laboratory Tests Test 03/02/17 06:35 White Blood Count 7.5 # Red Blood Count 4.84 Hemoglobin 14.3 Hematocrit 42.4 Mean Corpuscular Volume 87.6 Mean Corpuscular Hemoglobin 29.5 Mean Corpuscular Hemoglobin Concent 33.7 Red Cell Distribution Width 13.4 Platelet Count 165 Mean Platelet Volume 11.0 H Neutrophils % 72.7 Lymphocytes % 19.3 Monocytes % 6.9 Eosinophils % 0.4 Basophils % 0.3 Nucleated Red Blood Cells % 0.0 Neutrophils # 5.5 Lymphocytes # 1.5 Monocytes # 0.5 Eosinophils # 0.0 Basophils # 0.0 Nucleated Red Blood Cells # 0.0 Sodium Level 140 Potassium Level 3.6 Chloride Level 105 Carbon Dioxide Level 25 Anion Gap 14 Blood Urea Nitrogen 15 Creatinine 0.73 Glucose Level 117 Calcium Level 8.9 Medications Medications Current Medications Aspirin (Ecotrin) 325 mg DAILY PO Last administered on 03/02/17 09:02; Admin Dose 325 MG; Start 03/01/17 at 09:00 Ketorolac Tromethamine (Toradol) 15 mg Q6H PRN IV PAIN Last administered on 22:35; Admin Dose 15 MG; Start 02/28/17 at 20:30; Stop 03/03/17 at 20:29 Acetaminophen (Tylenol Tab) 500 mg Q4H PRN PO PAIN AND OR ELEVATED TEMP Last administered on 03/01/17 09:07; Admin Dose 500 MG; Start 02/28/17 at 20:30 Enoxaparin Sodium (Lovenox) 40 mg DAILY SC Last administered on 03/02/17 09:03 ; Admin Dose 40 MG; Start 03/01/17 at 09:00 Methylprednisolone (Medrol) 4 mg HS PO ; Start 03/02/17 at 21:00; Stop 03/04/17 at 21:01 Morphine Sulfate (morphine) 2 mg Q4H PRN IV PAIN LEVEL 4-6 Last administered on 03/01/17 14:14; Admin Dose 2 MG; Start 03/01/17 at 14:00 FOZIA MENDEZ Mar 02, 2017 13:30
--- NOTE | 2017-03-02 14:14 | PN ---
Date/Time of Note Date/Time of Note DATE: 03/02/17 TIME: 14:10 Assessment/Plan VTE Prophylaxis VTE Prophylaxis Intervention: SCD's Lines/Catheters IV [facility] Type [facility]from [facility] Saline Lock Urinary Cath still in place: No Assessment/Plan Chief Complaint/Hosp Course Assessment and plan: - Chest pain rule out acute coronary syndrome, Dr. Rojas is following and cardiology consultation. Pending stress test today. - Cervical radiculopathy, continue Medrol Dosepak and Mobic - Sinus bradycardia, continue to monitor on telemetry floor. Further recommendations based on clinical course. Plan of care discussed with Dr. Ramos. Problems: Subjective 24 Hr Interval Summary Free Text/Dictation Patient's complains of neck left lateral neck pain that radiates to the head and left shoulder, denies any chest pain denies shortness of breath. Exam/Review of Systems Vital Signs Vitals Vital Signs Date Time Temp Pulse Resp B/P Pulse Ox O2 Delivery O2 Flow Rate FiO2 03/02/17 12:28 59 03/02/17 11:38 97.8 18 113/71 96 02/28/17 16:00 Room Air Intake and Output 03/01/17 03/01/17 03/02/17 15:00 23:00 07:00 Intake Total 1000 ml 450 ml Balance 1000 ml 450 ml Exam Constitutional: alert, oriented Psych: no complaints Head: atraumatic, normocephalic Eyes: nl conjunctiva ENMT: nl external ears & nose Neck: other (Tenderness), supple Respiratory: clear to auscultation Cardiovascular: nl pulses, regular rate and rhythm Gastrointestinal: non-tender, soft Musculoskeletal: nl extremities to inspection Extremities: normal pulses Neurological: AUTO TESTER II-XII intact Results Result Diagram: 03/02/17 0635 03/02/17 0635 Results 24 hrs Laboratory Tests Test 03/02/17 06:35 White Blood Count 7.5 # Red Blood Count 4.84 Hemoglobin 14.3 Hematocrit 42.4 Mean Corpuscular Volume 87.6 Mean Corpuscular Hemoglobin 29.5 Mean Corpuscular Hemoglobin Concent 33.7 Red Cell Distribution Width 13.4 Platelet Count 165 Mean Platelet Volume 11.0 H Neutrophils % 72.7 Lymphocytes % 19.3 Monocytes % 6.9 Eosinophils % 0.4 Basophils % 0.3 Nucleated Red Blood Cells % 0.0 Neutrophils # 5.5 Lymphocytes # 1.5 Monocytes # 0.5 Eosinophils # 0.0 Basophils # 0.0 Nucleated Red Blood Cells # 0.0 Sodium Level 140 Potassium Level 3.6 Chloride Level 105 Carbon Dioxide Level 25 Anion Gap 14 Blood Urea Nitrogen 15 Creatinine 0.73 Glucose Level 117 Calcium Level 8.9 Medications Medications Current Medications Aspirin (Ecotrin) 325 mg DAILY PO Last administered on 03/02/17 09:02; Admin Dose 325 MG; Start 03/01/17 at 09:00 Ketorolac Tromethamine (Toradol) 15 mg Q6H PRN IV PAIN Last administered on 22:35; Admin Dose 15 MG; Start 02/28/17 at 20:30; Stop 03/03/17 at 20:29 Acetaminophen (Tylenol Tab) 500 mg Q4H PRN PO PAIN AND OR ELEVATED TEMP Last administered on 03/01/17 09:07; Admin Dose 500 MG; Start 02/28/17 at 20:30 Enoxaparin Sodium (Lovenox) 40 mg DAILY SC Last administered on 03/02/17 09:03 ; Admin Dose 40 MG; Start 03/01/17 at 09:00 Methylprednisolone (Medrol) 4 mg HS PO ; Start 03/02/17 at 21:00; Stop 03/04/17 at 21:01 Morphine Sulfate (morphine) 2 mg Q4H PRN IV PAIN LEVEL 4-6 Last administered on 03/01/17 14:14; Admin Dose 2 MG; Start 03/01/17 at 14:00 JESUS ANTONIO Mar 02, 2017 14:14
--- NOTE | 2017-03-02 15:25 | RADRPT ---
PROCEDURE: Lexiscan myocardial perfusion study CLINICAL INDICATION: 56 -year-old patient complaining of chest pain. TECHNIQUE: Lexiscan 0.4 mg intravenously separate acquisition gated myocardial perfusion SPECT usi ng Tc 99m Myoview 29.0 mCi intravenously at stress and Tc-99m Myoview, 10.7 mCi intravenously at res t was performed using the rest/stress sequence. Poststress Myoview SPECT images were obtained in th e supine position. COMPARISON: No prior studies. FINDINGS: Perfusion images reveal a small mild reversible perfusion abnormality in the inferior wall. Lexiscan post stress gated SPECT images demonstrate no wall motion abnormalities. IMPRESSION: 1. The type and distribution of the scintigraphic abnormalities are most consistent with a small re versible perfusion defect in the inferior wall. The finding may be related to soft tissue attenuatio n. 2. No wall motion abnormalities. 3. The left ventricle ejection fraction at stress is 59%. A call report was made to Dr. Rojas at the 24 p.m. on March 02, 2017 RPTAT: HH .Grace Barroso MD, Date Time Electronically viewed and signed by .Grace Barroso MD, on 03/02/2017 15:24 .L/
--- NOTE | 2017-03-02 18:03 | CARRPT ---
DATE OF PROCEDURE: 03/02/2017 LEXISCAN CARDIOLITE STRESS TEST REASON FOR STRESS TESTING: Chest pain, assess for ischemia. BASELINE VITAL SIGNS AND ELECTROCARDIOGRAM: Pulse of 45, blood pressure 158/82. Electrocardiogram with sinus bradycardia, rate 45 with borderline lateral Q-waves and lateral T-wave inversion. PROCEDURE: The patient underwent standard Lexiscan infusion protocol over 10 seconds followed by ra diolabeled tracer. The patient's test was stopped due to completion of protocol. Maximal achieved blood pressure during the test 148/89. Maximum heart rate during the test 88. ELECTROCARDIOGRAM FINDINGS: The patient did not develop any new Lexiscan-induced ST or T-wave lay es from baseline abnormalities. No documented PVCs. SYMPTOMS: The patient had complaints of chest pain and headache during stress test that resolved in recovery. IMPRESSION: 1. No Lexiscan-induced ST or T-wave changes from baseline abnormalities are diagnostic for cardiac ischemia. 2. Complaints of chest pain during stress testing. 3. No documented premature ventricular contractions during stress testing. 4. Report of nuclear images to follow in separate dictation. Dictated By: FOZIA VASQUEZ/SCAR Conf#: [id number] DID#: [id number] CC: LUZ MARINA MCPHERSON MD;*EndCC*
[2017-03-03] VITALS (12 sets, daily range): BP systolic 109–129; BP diastolic 64–74; PULSE 49–94; RESP 16–20
[2017-03-03 07:35] LABS: ADD SCAN DIFF NO
[2017-03-03 07:48] LABS: BASOPHILS % 0.3 % (0.0-2.0); EOSINOPHILS % 0.3 % (0.0-7.0); HEMATOCRIT 44.8 % (42.0-52.0); HEMOGLOBIN 14.6 g/dl (14.0-18.0); LYMPHOCYTES # 1.7 10^3/ul (0.8-2.9); LYMPHOCYTES % 26.4 % (15.0-51.0); MEAN CORPUSCULAR HEMOGLOBIN 29.1 pg (29.0-33.0); MEAN CORPUSCULAR HGB CONC 32.6 g/dl (32.0-37.0); MEAN CORPUSCULAR VOLUME 89.4 fl (82.0-101.0); MEAN PLATELET VOLUME 11.1 fl (7.4-10.4); MONOCYTE # 0.4 10^3/ul (0.3-0.9); MONOCYTES % 5.6 % (0.0-11.0); NEUTROPHIL # 4.4 10^3/ul (1.6-7.5); NEUTROPHILS % 67.1 % (39.0-77.0); PLATELET COUNT 162 10^3/UL (140-415); RED BLOOD COUNT 5.01 10^6/ul (4.70-6.10); RED CELL DISTRIBUTION WIDTH 13.8 % (11.5-14.5); WHITE BLOOD COUNT 6.6 10^3/ul (4.8-10.8)
[2017-03-03] MEDS: ASPIRIN (EC) 325 MG TAB PO SCH (08:01)
[2017-03-03] MEDS: METHYLPREDNISOLONE 4 MG TAB PO SCH ×3 (08:01→20:34)
[2017-03-03] MEDS: ENOXAPARIN 40 MG/0.4 ML SYG SC SCH (08:02)
[2017-03-03 08:08] LABS: CREATININE 0.68 mg/dl (0.61-1.24); MAGNESIUM 2.1 mg/dl (1.7-2.5); POTASSIUM 4.3 mmol/L (3.5-5.1)
--- NOTE | 2017-03-03 14:56 | CONS ---
Date/Time of Note Date/Time of Note DATE: 03/03/17 TIME: 14:55 Assessment/Plan Assessment/Plan Additional Assessment/Plan 1. Chest pain, assess for acute coronary syndrome with somewhat atypical symptomatology for cardiac etiology at this time.-negative troponin x 3/NL EF by echo this admit. EF 55-60- STRESS TEST DONE - per radiology discussion with dr. Rojas - likely artifact - med rx advised - ok for outpt f/up. 2. Bradycardia with most recently reasonable heart rates, but by assessment of vital signs have been as low 39. We will review telemetry strips with [employer] which did not show me any rhythms quite that slow.-documented to 50 overnight - HR stable - no indication for pacer now. 4. Hypotension, borderline.-stable to improved- better. 5. Neck pain, possible cervical radiculopathy. Consultation Date/Type/Reason Admit Date/Time Feb 28, 2017 at 14:34 Initial Consult Date Type of Consultation: Cardiology Referring Provider: LUZ MARINA MCPHERSON MD 24 HR Interval Summary Free Text/Dictation STRESS TEST DONE - per radiology discussion with dr. Rojas - likely artifact - med rx advised - ok for outpt f/up. ROS: No fever, no chills, no nausea, no vomiting, no diarrhea/constipation No recent weight changes No chest pain, no PND, no orthopnea No dizziness, blurred vision No thirst, no heat or cold intolerance Exam/Review of Systems Vital Signs Vitals Vital Signs Date Time Temp Pulse Resp B/P Pulse Ox O2 Delivery O2 Flow Rate FiO2 03/03/17 12:04 56 03/03/17 11:49 98.0 20 126/70 98 03/03/17 04:40 Room Air Intake and Output 03/02/17 03/02/17 03/03/17 15:00 23:00 07:00 Intake Total 550 ml 800 ml Output Total 1300 ml Balance -750 ml 800 ml Exam General: WN/WD/NAD, AOx 3 HEENT: Unicetric/atraumatic/EOMI (follow commands) NECK: JVD elevated, no thyromegaly Lymph: no lymphadenopathy HEART: regular with no S3, II/ systolic murmur at apex LUNGS: Coarse sounds ABD: soft, NT, ND, +BS : Intact Neuro: non focal SKIN: chronic changes EXT: trace edema Results Result Diagram: 03/03/17 0515 03/03/17 0515 Results 24 hrs Laboratory Tests Test 03/03/17 05:15 White Blood Count 6.6 Red Blood Count 5.01 Hemoglobin 14.6 Hematocrit 44.8 Mean Corpuscular Volume 89.4 Mean Corpuscular Hemoglobin 29.1 Mean Corpuscular Hemoglobin Concent 32.6 Red Cell Distribution Width 13.8 Platelet Count 162 Mean Platelet Volume 11.1 H Neutrophils % 67.1 Lymphocytes % 26.4 Monocytes % 5.6 Eosinophils % 0.3 Basophils % 0.3 Nucleated Red Blood Cells % 0.0 Neutrophils # 4.4 Lymphocytes # 1.7 Monocytes # 0.4 Eosinophils # 0.0 Basophils # 0.0 Nucleated Red Blood Cells # 0.0 Sodium Level 139 Potassium Level 4.3 Chloride Level 107 Carbon Dioxide Level 27 Anion Gap 9 # Blood Urea Nitrogen 13 Creatinine 0.68 Glucose Level 111 Calcium Level 9.0 Magnesium Level 2.1 Medications Medications Current Medications Aspirin (Ecotrin) 325 mg DAILY PO Last administered on 03/03/17 08:01; Admin Dose 325 MG; Start 03/01/17 at 09:00 Ketorolac Tromethamine (Toradol) 15 mg Q6H PRN IV PAIN Last administered on 22:35; Admin Dose 15 MG; Start 02/28/17 at 20:30; Stop 03/03/17 at 20:29 Acetaminophen (Tylenol Tab) 500 mg Q4H PRN PO PAIN AND OR ELEVATED TEMP Last administered on 03/01/17 09:07; Admin Dose 500 MG; Start 02/28/17 at 20:30 Enoxaparin Sodium (Lovenox) 40 mg DAILY SC Last administered on 03/03/17 08:02 ; Admin Dose 40 MG; Start 03/01/17 at 09:00 Methylprednisolone (Medrol) 4 mg HS PO Last administered on 03/02/17 21:09; Admin Dose 4 MG; Start 03/02/17 at 21:00; Stop 03/04/17 at 21:01 Morphine Sulfate (morphine) 2 mg Q4H PRN IV PAIN LEVEL 4-6 Last administered on 03/01/17 14:14; Admin Dose 2 MG; Start 03/01/17 at 14:00 SAM GASPAR MD Mar 03, 2017 14:56
--- NOTE | 2017-03-03 19:07 | PDOCDIS ---
Discharge Instructions CONDITION Patient Condition: Stable HOME CARE INSTRUCTIONS: Diet Instructions: Low Fat /Cholesterol ACTIVITY: Bathing Restrictions: Sponge Bath FOLLOW UP/APPOINTMENTS Appointments FU with PMD x 1 week FU with cardiology as recommended. Call 911 or go to the nearest hospital if symptoms worsen. Patient verbalized understanding dc instructions dw dr epstein/staff/patient CAMELIA JUARES Mar 03, 2017 19:07
[2017-03-03] MEDS ORDERED: DEC4 PO (19:12)
[2017-03-03] MEDS ORDERED: ASPI325T32 PO (19:12)
[2017-03-03] MEDS ORDERED: NIT4 SL (19:12)
--- NOTE | 2017-03-03 19:15 | DS ---
Date/Time of Note Date/Time of Note DATE: 03/03/17 TIME: 19:15 Discharge Summary Admission/Discharge Info Admit Date/Time Feb 28, 2017 at 14:34 Discharge Date/Time Final Diagnosis Assessment and plan: - Chest pain rule out acute coronary syndrome, Dr. Rojas is following and cardiology consultation. Pending stress test today. - Cervical radiculopathy, continue Medrol Dosepak and Mobic - Sinus bradycardia, continue to monitor on telemetry floor. Patient Condition: Stable Hospital Course 56-year-old male patient who was admitted to the hospital with chest pain patient was admitted under Dr. Ramos troponins showed positive troponins Dr. Yung/Dr. Rojas of the [facility] [employer] on the case. After being treated by [facility] [employer] the patient starts feeling better on its cleared by cardiology to go home. Discussed with Dr. Gardiner. Patient is cleared to go home by cardiology Home Meds Active Scripts Dexamethasone* (Decadron*) 4 Mg Tab, 4 MG PO TID for 3 Days, #9 TAB Prov:CAMELIA JUARES 03/03/17 Nitroglycerin* (Nitrostat*) 0.4 Mg Tab.subl, 1 TAB SL .Q5M UP TO 3 DOSES Y for CHEST PAIN for 30 Days Prov:CAMELIA JUARES 03/03/17 Aspirin (Aspir-Leslie) 325 Mg Tablet.dr, 325 MG PO DAILY for 30 Days Prov:CAMELIA JUARES 03/03/17 Pending Labs Laboratory Tests Test 03/03/17 05:15 White Blood Count 6.610^3/ul (4.8-10.8) Red Blood Count 5.0110^6/ul (4.70-6.10) Hemoglobin 14.6g/dl (14.0-18.0) Hematocrit 44.8% (42.0-52.0) Mean Corpuscular Volume 89.4fl (82.0-101.0) Mean Corpuscular Hemoglobin 29.1pg (29.0-33.0) Mean Corpuscular Hemoglobin Concent 32.6g/dl (32.0-37.0) Red Cell Distribution Width 13.8% (11.5-14.5) Platelet Count 49061^3/UL (140-415) Mean Platelet Volume 11.1fl (7.4-10.4) Neutrophils % 67.1% (39.0-77.0) Lymphocytes % 26.4% (15.0-51.0) Monocytes % 5.6% (0.0-11.0) Eosinophils % 0.3% (0.0-7.0) Basophils % 0.3% (0.0-2.0) Nucleated Red Blood Cells % 0.0/100WBC (0.0-0.0) Neutrophils # 4.410^3/ul (1.6-7.5) Lymphocytes # 1.710^3/ul (0.8-2.9) Monocytes # 0.410^3/ul (0.3-0.9) Eosinophils # 0.010^3/ul (0.0-0.5) Basophils # 0.010^3/ul (0.0-0.1) Nucleated Red Blood Cells # 0.010^3/ul (0.0-0.0) Sodium Level 139mmol/L (135-144) Potassium Level 4.3mmol/L (3.5-5.1) Chloride Level 107mmol/L (97-110) Carbon Dioxide Level 27mmol/L (21-31) Anion Gap 9 (8-16) Blood Urea Nitrogen 13mg/dl (7-20) Creatinine 0.68mg/dl (0.61-1.24) Glucose Level 111mg/dl (70-220) Calcium Level 9.0mg/dl (8.4-10.2) Magnesium Level 2.1mg/dl (1.7-2.5) CAMELIA JUARES Mar 03, 2017 19:15
[2017-03-03] MEDS ORDERED: AL HYDROX/MG HYDROX/SIMETH 30 ML CUP PO ONE (20:00)
[2017-03-03 20:27] LABS: CHOL/HDL RATIO 2.8 RATIO
[2017-03-03] MEDS: PANTOPRAZOLE (EC) 40 MG TAB PO SCH (21:28)
[2017-03-04] VITALS (11 sets, daily range): BP systolic 112–133; BP diastolic 68–79; PULSE 44–71; RESP 17–20
[2017-03-04] MEDS: PANTOPRAZOLE (EC) 40 MG TAB PO SCH ×2 (05:45→17:21)
[2017-03-04 07:51] LABS: ADD SCAN DIFF NO; BASOPHILS % 0.5 % (0.0-2.0); EOSINOPHILS # 0.1 10^3/ul (0.0-0.5); EOSINOPHILS % 1.2 % (0.0-7.0); HEMOGLOBIN 14.7 g/dl (14.0-18.0); LYMPHOCYTES % 30.7 % (15.0-51.0); MEAN CORPUSCULAR HEMOGLOBIN 29.5 pg (29.0-33.0); MEAN CORPUSCULAR HGB CONC 33.4 g/dl (32.0-37.0); MEAN CORPUSCULAR VOLUME 88.2 fl (82.0-101.0); MEAN PLATELET VOLUME 10.8 fl (7.4-10.4); MONOCYTE # 0.5 10^3/ul (0.3-0.9); MONOCYTES % 8.1 % (0.0-11.0); NEUTROPHIL # 3.9 10^3/ul (1.6-7.5); NEUTROPHILS % 58.9 % (39.0-77.0); PLATELET COUNT 176 10^3/UL (140-415); RED BLOOD COUNT 4.99 10^6/ul (4.70-6.10); RED CELL DISTRIBUTION WIDTH 13.6 % (11.5-14.5); WHITE BLOOD COUNT 6.7 10^3/ul (4.8-10.8)
[2017-03-04] MEDS: ASPIRIN (EC) 325 MG TAB PO SCH (09:44)
[2017-03-04] MEDS: METHYLPREDNISOLONE 4 MG TAB PO SCH (09:45)
[2017-03-04] MEDS: ENOXAPARIN 40 MG/0.4 ML SYG SC SCH (09:47)
--- NOTE | 2017-03-04 14:15 | RADRPT ---
Vent Rate: 51 bpm RR Interval: 0 msec HI Interval: 132 msec QRS Duration: 86 msec QT Interval: 430 msec QTC Interval: 396 msec P-R-T [place]: 7 - 11 - 6 degrees Sinus bradycardia Otherwise normal ECG No previous tracing available for comparison Electronically Signed By: Nathan Peterson [id number]
--- NOTE | 2017-03-04 16:06 | CONS ---
Date/Time of Note Date/Time of Note DATE: 03/04/17 TIME: 16:04 Assessment/Plan Assessment/Plan Additional Assessment/Plan 1. Chest pain, assess for acute coronary syndrome with somewhat atypical symptomatology for cardiac etiology at this time.-negative troponin x 3/NL EF by echo this admit. EF 55-60- STRESS TEST DONE - per radiology discussion with dr. Rojas - likely artifact - med rx advised - ok for outpt f/up - plan for dispo now 2. Bradycardia with most recently reasonable heart rates, but by assessment of vital signs have been as low 39. We will review telemetry strips with [email or web address] which did not show me any rhythms quite that slow.-documented to 50 overnight - HR stable - no indication for pacer now. 4. Hypotension, borderline.-stable to improved- better. 5. Neck pain, possible cervical radiculopathy. 6. Abn ECG - sinus in 50s now - stable Consultation Date/Type/Reason Admit Date/Time Feb 28, 2017 at 14:34 Type of Consultation: Cardiology Referring Provider: LUZ MARINA MCPHERSON MD 24 HR Interval Summary Free Text/Dictation NO acute events - BP stable - will monitor closely ROS: No fever, no chills, no nausea, no vomiting, no diarrhea/constipation No recent weight changes No chest pain, no PND, no orthopnea No dizziness, blurred vision No thirst, no heat or cold intolerance Exam/Review of Systems Vital Signs Vitals Vital Signs Date Time Temp Pulse Resp B/P Pulse Ox O2 Delivery O2 Flow Rate FiO2 03/04/17 15:29 97.6 65 20 125/71 98 03/03/17 04:40 Room Air Intake and Output 03/03/17 03/03/17 03/04/17 15:00 23:00 07:00 Intake Total 1850 ml Output Total 4000 ml Balance -2150 ml Exam General: WN/WD/NAD, AOx 2-3 HEENT: Unicetric/atraumatic/EOMI (follow commands) NECK: JVD elevated, no thyromegaly Lymph: no lymphadenopathy HEART: regular with no S3, II/ systolic murmur at apex LUNGS: Coarse sounds ABD: soft, NT, ND, +BS : Intact Neuro: non focal SKIN: chronic changes EXT: trace edema Results Result Diagram: 03/04/17 0635 03/03/17 0515 Results 24 hrs Laboratory Tests Test 03/03/17 20:00 03/04/17 06:35 Troponin I < 0.012 Triglycerides Level 116 Cholesterol Level 147 LDL Cholesterol, Calculated 72 HDL Cholesterol 52 Cholesterol/HDL Ratio 2.8 White Blood Count 6.7 Red Blood Count 4.99 Hemoglobin 14.7 Hematocrit 44.0 Mean Corpuscular Volume 88.2 Mean Corpuscular Hemoglobin 29.5 Mean Corpuscular Hemoglobin Concent 33.4 Red Cell Distribution Width 13.6 Platelet Count 176 Mean Platelet Volume 10.8 H Neutrophils % 58.9 Lymphocytes % 30.7 Monocytes % 8.1 Eosinophils % 1.2 Basophils % 0.5 Nucleated Red Blood Cells % 0.0 Neutrophils # 3.9 Lymphocytes # 2.0 Monocytes # 0.5 Eosinophils # 0.1 Basophils # 0.0 Nucleated Red Blood Cells # 0.0 Magnesium Level 1.9 Medications Medications Current Medications Aspirin (Ecotrin) 325 mg DAILY PO Last administered on 03/04/17 09:44; Admin Dose 325 MG; Start 03/01/17 at 09:00 Acetaminophen (Tylenol Tab) 500 mg Q4H PRN PO PAIN AND OR ELEVATED TEMP Last administered on 03/01/17 09:07; Admin Dose 500 MG; Start 02/28/17 at 20:30 Enoxaparin Sodium (Lovenox) 40 mg DAILY SC Last administered on 03/04/17 09:47 ; Admin Dose 40 MG; Start 03/01/17 at 09:00 Methylprednisolone (Medrol) 4 mg HS PO Last administered on 03/03/17 20:34; Admin Dose 4 MG; Start 03/02/17 at 21:00; Stop 03/04/17 at 21:01 Morphine Sulfate (morphine) 2 mg Q4H PRN IV PAIN LEVEL 4-6 Last administered on 03/01/17 14:14; Admin Dose 2 MG; Start 03/01/17 at 14:00 Pantoprazole (Protonix Tab) 40 mg BID@,18 PO Last administered on 03/03/17 21:28; Admin Dose 40 MG; Start 03/03/17 at 21:00 SAM GASPAR MD Mar 04, 2017 16:05
--- NOTE | 2017-03-04 18:13 | PN ---
Date/Time of Note Date/Time of Note DATE: 03/04/17 TIME: 18:11 Assessment/Plan VTE Prophylaxis VTE Prophylaxis Intervention: other Lines/Catheters IV [facility] Saline Lock Urinary Cath still in place: No Assessment/Plan Assessment/Plan - Chest pain rule out acute coronary syndrome, Dr. Rojas is following and cardiology consultation. Pending stress test today. - Cervical radiculopathy, continue Medrol Dosepak and Mobic - Sinus bradycardia, continue to monitor on telemetry floor. Further recommendations based on clinical course. Plan of care discussed with Dr. Ramos. Subjective 24 Hr Interval Summary Constitutional: no complaints Eyes: no complaints ENT: no complaints, pain Respiratory: no complaints Cardiovascular: no complaints Gastrointestinal: no complaints Genitourinary: no complaints Musculoskeletal: bone/joint pain, no complaints Neurologic: no complaints Endocrine: no complaints Exam/Review of Systems Vital Signs Vitals Vital Signs Date Time Temp Pulse Resp B/P Pulse Ox O2 Delivery O2 Flow Rate FiO2 03/04/17 16:17 71 03/04/17 15:29 97.6 20 125/71 98 03/03/17 04:40 Room Air Intake and Output 03/03/17 03/03/17 03/04/17 15:00 23:00 07:00 Intake Total 1850 ml Output Total 4000 ml Balance -2150 ml Exam Constitutional: alert Psych: nl mood/affect Head: atraumatic Eyes: EOMI ENMT: nl external ears & nose Neck: non-tender Respiratory: clear to auscultation Cardiovascular: nl pulses Gastrointestinal: soft Musculoskeletal: nl extremities to inspection Neurological: nl mental status Skin: nl turgor Results Result Diagram: 03/04/17 0635 03/03/17 0515 Results 24 hrs Laboratory Tests Test 03/03/17 20:00 03/04/17 06:35 Troponin I < 0.012 Triglycerides Level 116 Cholesterol Level 147 LDL Cholesterol, Calculated 72 HDL Cholesterol 52 Cholesterol/HDL Ratio 2.8 White Blood Count 6.7 Red Blood Count 4.99 Hemoglobin 14.7 Hematocrit 44.0 Mean Corpuscular Volume 88.2 Mean Corpuscular Hemoglobin 29.5 Mean Corpuscular Hemoglobin Concent 33.4 Red Cell Distribution Width 13.6 Platelet Count 176 Mean Platelet Volume 10.8 H Neutrophils % 58.9 Lymphocytes % 30.7 Monocytes % 8.1 Eosinophils % 1.2 Basophils % 0.5 Nucleated Red Blood Cells % 0.0 Neutrophils # 3.9 Lymphocytes # 2.0 Monocytes # 0.5 Eosinophils # 0.1 Basophils # 0.0 Nucleated Red Blood Cells # 0.0 Magnesium Level 1.9 Medications Medications Current Medications Aspirin (Ecotrin) 325 mg DAILY PO Last administered on 03/04/17 09:44; Admin Dose 325 MG; Start 03/01/17 at 09:00 Acetaminophen (Tylenol Tab) 500 mg Q4H PRN PO PAIN AND OR ELEVATED TEMP Last administered on 03/01/17 09:07; Admin Dose 500 MG; Start 02/28/17 at 20:30 Enoxaparin Sodium (Lovenox) 40 mg DAILY SC Last administered on 03/04/17 09:47 ; Admin Dose 40 MG; Start 03/01/17 at 09:00 Methylprednisolone (Medrol) 4 mg HS PO Last administered on 03/03/17 20:34; Admin Dose 4 MG; Start 03/02/17 at 21:00; Stop 03/04/17 at 21:01 Morphine Sulfate (morphine) 2 mg Q4H PRN IV PAIN LEVEL 4-6 Last administered on 03/01/17 14:14; Admin Dose 2 MG; Start 03/01/17 at 14:00 Pantoprazole (Protonix Tab) 40 mg BID@,18 PO Last administered on 03/04/17 17:21; Admin Dose 40 MG; Start 03/03/17 at 21:00 CAMELIA JUARES Mar 04, 2017 18:13
--- NOTE | 2017-03-04 18:56 | DS ---
Date/Time of Note Date/Time of Note DATE: 03/04/17 TIME: 18:48 Discharge Summary Admission/Discharge Info Admit Date/Time Feb 28, 2017 at 14:34 Discharge Date/Time Patient Condition: Stable Hospital Course Further recommendations based on clinical course. Plan of care discussed with Dr. Ramos. Home Meds Active Scripts Dexamethasone* (Decadron*) 4 Mg Tab, 4 MG PO TID for 3 Days, #9 TAB Prov:CAMELIA JUARES 03/03/17 Nitroglycerin* (Nitrostat*) 0.4 Mg Tab.subl, 1 TAB SL .Q5M UP TO 3 DOSES Y for CHEST PAIN for 30 Days Prov:CAMELIA JUARES 03/03/17 Aspirin (Aspir-Leslie) 325 Mg Tablet.dr, 325 MG PO DAILY for 30 Days Prov:CAMELIA JUARES 03/03/17 Pending Labs Laboratory Tests Test 03/03/17 20:00 03/04/17 06:35 Troponin I < 0.012ng/ml (0.00-0.12) Triglycerides Level 116mg/dl (0-149) Cholesterol Level 147mg/dl (100-200) LDL Cholesterol, Calculated 72mg/dl HDL Cholesterol 52mg/dl (28-71) Cholesterol/HDL Ratio 2.8RATIO White Blood Count 6.710^3/ul (4.8-10.8) Red Blood Count 4.9910^6/ul (4.70-6.10) Hemoglobin 14.7g/dl (14.0-18.0) Hematocrit 44.0% (42.0-52.0) Mean Corpuscular Volume 88.2fl (82.0-101.0) Mean Corpuscular Hemoglobin 29.5pg (29.0-33.0) Mean Corpuscular Hemoglobin Concent 33.4g/dl (32.0-37.0) Red Cell Distribution Width 13.6% (11.5-14.5) Platelet Count 62761^3/UL (140-415) Mean Platelet Volume 10.8fl (7.4-10.4) Neutrophils % 58.9% (39.0-77.0) Lymphocytes % 30.7% (15.0-51.0) Monocytes % 8.1% (0.0-11.0) Eosinophils % 1.2% (0.0-7.0) Basophils % 0.5% (0.0-2.0) Nucleated Red Blood Cells % 0.0/100WBC (0.0-0.0) Neutrophils # 3.910^3/ul (1.6-7.5) Lymphocytes # 2.010^3/ul (0.8-2.9) Monocytes # 0.510^3/ul (0.3-0.9) Eosinophils # 0.110^3/ul (0.0-0.5) Basophils # 0.010^3/ul (0.0-0.1) Nucleated Red Blood Cells # 0.010^3/ul (0.0-0.0) Magnesium Level 1.9mg/dl (1.7-2.5) CAMELIA JUARES Mar 04, 2017 18:56 Magnesium Level 1.9mg/dl (1.7-2.5) CAMELIA JUARES Mar 04, 2017 18:56
== END 2017-03-04 19:30 | disposition home or self-care (01) | DRG 311 ==
LOC: E/R 10:25 → MS4 14:34
PROVIDERS: ADMIT Internal Medicine; ATTEND Internal Medicine
PROC: C22G1ZZ Tomographic (Tomo) Nuclear Medicine Imaging of Myocardium using Technetium 99m (Tc-99m) (ICD-10-PCS; principal; 2017-03-01)
PROC: 4A02XM4 Measurement of Cardiac Total Activity, External Approach (ICD-10-PCS; 2017-03-01)
PROC: 3E033HZ Introduction of Radioactive Substance into Peripheral Vein, Percutaneous Approach (ICD-10-PCS; 2017-03-01)
DX: I24.9 Acute ischemic heart disease, unspecified (principal); I95.89 Other hypotension; R00.1 Bradycardia, unspecified; M25.78 Osteophyte, vertebrae; Z87.19 Personal history of other diseases of the digestive system; M48.02 Spinal stenosis, cervical region; M54.12 Radiculopathy, cervical region
CPT/HCPCS: 36415; 71010; 71275; 72125; 73030; 78452; 80048; 80053; 80061; 81003; 82550; 82553; 83036; 83735; 83880; 84443; 84484; 85025; 85610; 85730; 87086; 93005; 93017; 93306; 96374; 96375; A9500; A9505; J1650; J1885; J2270; J2405; J2785; J7030; J7509; Q9967

== ENCOUNTER 2017-04-12 23:29 | Emergency (ER) | payer OTHER ==
[~2017-04-12] VITALS: Ht 167.6 cm; Wt 87.5 kg
[~2017-04-12 23:29] MED LIST changes: -ACET1TAB40 PO; +ASPI325T32 PO; +DEC4 PO; +NIT4 SL
[2017-04-12 23:58] VITALS: Ht 167.6 cm; Wt 87.5 kg
[2017-04-13] MEDS ORDERED: ACETAMINOPHEN 325 MG TAB PO ONE (02:00)
[2017-04-13] MEDS ORDERED: FLUT9.9S NASAL (02:58)
[2017-04-13] MEDS ORDERED: ACET500C5 PO (02:58)
[2017-04-13] MEDS ORDERED: ALBU8.5H3 INH (02:58)
--- NOTE | 2017-04-13 03:04 | ERD ---
ER Documentation Chief Complaint Date/Time DATE: 04/13/17 TIME: 03:01 Chief Complaint pt reports liquid of AC hit him in face HPI 56-year-old male patient with a past medical history of cervical radiculopathy, hemorrhoids presents the ED complaining of possible shortness of breath due exposure to gaseous substance when he was fixing the A/C. Reports that this happened at 3:30 PM on April 12, 2017. Reports that he felt like he had congestion in his nose and a headache. Denies any dizziness, weakness, abdominal pain, nausea, vomiting, fever, chills, difficulty breathing, odynophagia, dysphagia, diplopia, vision loss, photophobia, phonophobia. ROS All systems reviewed and are negative except as per history of present illness. Medications Home Meds Active Scripts Albuterol Sulfate* (Proair HFA*) 8.5 Gm Hfa.aer.ad, 2 PUFF INH Q4, #1 INHALER Prov:MITCH BURGER PA-C 04/13/17 Fluticasone Propionate (Flonase Allergy Relief) 9.9 Ml [place].susp, 1 SPRAY NASAL BID, #1 BOTTLE TO EACH NOSTRIL Prov:MITCH BURGER PA-C 04/13/17 Acetaminophen* (Tylophen*) 500 Mg Capsule, 1 CAP PO Q6H Y for PAIN AND OR ELEVATED TEMP, #20 CAP Prov:MITCH BURGER-C 04/13/17 Dexamethasone* (Decadron*) 4 Mg Tab, 4 MG PO TID for 3 Days, #9 TAB Prov:CAMELIA JUARES 03/03/17 Nitroglycerin* (Nitrostat*) 0.4 Mg Tab.subl, 1 TAB SL .Q5M UP TO 3 DOSES Y for CHEST PAIN for 30 Days Prov:CAMELIA JUARES 03/03/17 Aspirin (Aspir-Elslie) 325 Mg Tablet.dr, 325 MG PO DAILY for 30 Days Prov:CAMELIA JUARES 03/03/17 Allergies Allergies: Coded Allergies: No Known Allergy (Unverified , 02/28/17) PMhx/Soc Medical and Surgical Hx: pt denies Medical Hx History of Surgery: Yes (left forearm for fracture) Anesthesia Reaction: Yes Hx Neurological Disorder: No Hx Respiratory Disorders: No Hx Cardiac Disorders: No Hx Psychiatric Problems: No Hx Miscellaneous Medical Probl: No Hx Alcohol Use: No Hx Substance Use: No Hx Tobacco Use: No Smoking Status: Never smoker Physical Exam Vitals Vital Signs Date Time Temp Pulse Resp B/P Pulse Ox O2 Delivery O2 Flow Rate FiO2 04/13/17 03:08 77 18 121/75 99 Room Air 04/12/17 23:58 98.7 76 16 117/71 98 Physical Exam Const: [id number], well-nourished. In no acute distress. Head: Atraumatic, normocephalic Eyes: Normal Conjunctiva without injection. No purulent discharge. PERRL. EOMI ENT: Normal external ear. Ear canal without erythema. Tympanic membrane pearly milligan without effusion or bulging. Nasal canal clear with normal turbinates. Moist oropharynx without tonsillar exudates. Non-erythematous pharynx. Uvula midline. No drooling. No trismus. Neck: Full range of motion. No meningismus. No cervical lymphadenopathy. Resp: Clear to auscultation bilaterally. No wheezing, rhonchi, rales, or crackles. No accessory muscle use. No retractions. Cardio: Regular rate and rhythm. No murmurs, rubs or gallops. Abd: Soft, non tender, non distended. Normal bowel sounds. No palpable masses. No rebound tenderness. No guarding. Skin: No petechiae or rashes Back: No midline tenderness. No CVA tenderness. Ext: No cyanosis, or edema. Neur: Awake and alert. Psych: Normal Mood and Affect Results 24 hrs Current Medications Medications (Trade) Dose Ordered Sig/Guerrero Route PRN Reason Start Time Stop Time Status Last Admin Dose Admin Acetaminophen (Tylenol Tab) 650 mg ONCE ONCE PO 04/13/17 02:00 04/13/17 02:01 DC 04/13/17 02:11 Procedures/MDM This is a 56-year-old male patient with a past medical history of cervical radiculopathy, hemorrhoids presents to the ED complaining of being exposed to a gaseous substance. Patient is afebrile and nontoxic-appearing. Patient has normal vital signs. Pulse oximetry is 99%. This case was discussed with my supervising physician, Dr. Heath. We both agreed to consult the poison control. Lizett, the pharmacist was consulted and stated that due to the amount of time that patient was exposed to the Freon gas, there is unlikely to cause any acute injury. The case number was [id number]. Low suspicion for hypoxia , acute myocardial infarction, pneumothorax, pneumonia, cardiac tamponade, pulmonary embolism, pleural effusion, frostbites, carbon monoxide poisoning, AAA , aortic dissection, Boerhaave's syndrome, cardiac dysrhythmias,meningitis, intracranial bleed, seizure, stroke, TIA or other emergent conditions. Discharge medications: Tylenol, Flonase, ProAir Follow up with primary care physician in 1-2 days. Instructed patient to return to the ED sooner for any worsening symptoms. Patient's questions were answered. Patient understood and agreed with discharge plan. Patient discharged stable. Departure Diagnosis: Primary Impression: Exposure to gaseous substance Condition: Stable Patient Instructions: First Aid: Chemical Exposure, Chemical Inhalation, Headache, Unspecified Referrals: COMMUNITY CLINICS YOU HAVE RECEIVED A MEDICAL SCREENING EXAM AND THE RESULTS INDICATE THAT YOU DO NOT HAVE A CONDITION THAT REQUIRES URGENT TREATMENT IN THE EMERGENCY DEPARTMENT. FURTHER EVALUATION AND TREATMENT OF YOUR CONDITION CAN WAIT UNTIL YOU ARE SEEN IN YOUR DOCTORS OFFICE WITHIN THE NEXT 1-2 DAYS. IT IS YOUR RESPONSIBILITY TO MAKE AN APPOINTMENT FOR FOLOW-UP CARE. IF YOU HAVE A PRIMARY DOCTOR --you should call your primary doctor and schedule an appointment IF YOU DO NOT HAVE A PRIMARY DOCTOR YOU CAN CALL OUR PHYSICIAN REFERRAL HOTLINE AT IF YOU CAN NOT AFFORD TO SEE A PHYSICIAN YOU CAN CHOSE FROM THE FOLLOWING COUNTS INCLUDE 234 BEDS AT THE [facility] CL[facility]ICS [facility] [address] [facility]. [facility] [address] [facility] [address] [facility] [facility] [address] [facility] [address] [facility]. [facility]. [address] [facility]. [facility] YOU HAVE RECEIVED A MEDICAL SCREENING EXAM AND THE RESULTS INDICATE THAT YOU DO NOT HAVE A CONDITION THAT REQUIRES URGENT TREATMENT IN THE EMERGENCY DEPARTMENT. FURTHER EVALUATION AND TREATMENT OF YOUR CONDITION CAN WAIT UNTIL YOU ARE SEEN IN YOUR DOCTORS OFFICE WITHIN THE NEXT 1-2 DAYS. IT IS YOUR RESPONSIBILITY TO MAKE AN APPOINTMENT FOR FOLOW-UP CARE. IF YOU HAVE A PRIMARY DOCTOR --you should call your primary doctor and schedule and appointment IF YOU DO NOT HAVE A PRIMARY DOCTOR YOU CAN CALL OUR PHYSICIAN REFERRAL HOTLINE AT . IF YOU CAN NOT AFFORD TO SEE A PHYSICIAN YOU CAN CHOSE FROM THE FOLLOWING FORMERLY [facility] INSTITUTIONS: [facility] [address] [place] [address] [facility] [address], [place] [id number] [place] [address] [address] [place] [address] [facility] URGENT CARE/SPECIALTIES Additional Instructions: Llame al doctor pineda arturo MARIA INES PARA DENTRO DE 2-3 URIBE.Dgale a la secretaria que nosotros le instruimos hacer esta maria ines.Avise o llame si farias condicin se empeora antes de la maria ines. Regresa aqui si peor o no mejor. MITCH BURGER PA-C Apr 13, 2017 03:04
[2017-04-13 03:08] VITALS: BP 121/75; PULSE 77; RESP 18
== END 2017-04-13 03:10 | disposition home or self-care (01) ==
LOC: FTE 23:29
DX: T59.91XA Toxic effect of unspecified gases, fumes and vapors, accidental (unintentional), initial encounter (principal); Z79.82 Long term (current) use of aspirin
CPT/HCPCS: 99283

== ENCOUNTER 2017-06-07 13:03 | Day surgery (SDC) | payer OTHER ==
[~2017-06-07] VITALS: Ht 167.6 cm; Wt 84.4 kg
[~2017-06-07 13:03] MED LIST changes: +ACET500C5 PO; +ALBU8.5H3 INH; +FLUT9.9S NASAL
[2017-06-07] MEDS ORDERED: METRONIDAZOLE (14:52)
[2017-06-07] MEDS ORDERED: CIPROFLOXACIN (14:52)
[2017-06-07 14:57] VITALS: BP 108/61; PULSE 65; RESP 17
[2017-06-07] MEDS ORDERED: FENTAnyl 50 MCG/ML VIAL ONE (16:24)
[2017-06-07] MEDS ORDERED: MIDAZOLAM 1 MG/ML 2 ML INJ ONE (16:25)
[2017-06-07 16:48] VITALS: BP 128/72; PULSE 56; RESP 14
--- NOTE | 2017-06-08 05:44 | GILP ---
DATE OF PROCEDURE: 06/07/2017 PROCEDURE: Screening colonoscopy. SURGEON: Chris Driscoll MD PREOPERATIVE DIAGNOSES: 1. Rectal bleeding. 2. Change in bowel habits. POSTOPERATIVE DIAGNOSES: 1. Colonoscopy all the way to the cecum. 2. Small sigmoid colon polyp was removed using the biopsy forceps. 3. Large internal hemorrhoids. INDICATION: The patient is a 56-year-old male patient who had change in the bowel habit associated with rectal bleeding. The patient was scheduled for colonoscopy for further evaluation. The procedure and possible complications were well explained to the patient. He understood and consented to the procedure. DESCRIPTION OF PROCEDURE: Under the influence of fentanyl and Versed, the colonoscope was carefully introduced in the rectum. Under direct vision it was advanced all the way to the cecum. FINDINGS: The patient had a small sigmoid colon polyp and it was removed using the biopsy forceps. He had internal hemorrhoids. He tolerated the procedure very well. There was no complication from the procedure. At the end of procedure he was awake with stable vital signs and he was discharged home in care of his family. IMPRESSION: Please see postop diagnoses. PLAN: 1. Anusol HC 2.5 percent cream q.h.s. 2. High-fiber diet. 3. Next screening colonoscopy in 10 years. Dictated By: MD LONNY Flores/[email or web address] /Document#: [id number]
--- NOTE | 2017-06-08 19:03 | RADRPT ---
Vent Rate: 64 bpm RR Interval: 0 msec DE Interval: 148 msec QRS Duration: 82 msec QT Interval: 432 msec QTC Interval: 445 msec P-R-T Roby: 50 - 55 - 62 degrees Normal sinus rhythm Normal ECG Electronically Signed By: Kadeem Maria [id number]
== END 2017-06-07 19:30 | disposition home or self-care (01) ==
LOC: GIL 13:03
PROVIDERS: ATTEND Internal Medicine Gastroenterology
DX: D17.5 Benign lipomatous neoplasm of intra-abdominal organs (principal); K64.8 Other hemorrhoids; K62.5 Hemorrhage of anus and rectum; R19.4 Change in bowel habit
CPT/HCPCS: 45380; 93005; J2250; J3010; Z7610; 88305